=== PATIENT | female | born 2000 | race Caucasian/White ===

== ENCOUNTER 2021-04-17 18:16 | Emergency (ER) | payer SELFPAY ==
[2021-04-17 18:16] VITALS: BP 145/97; PULSE 84; RESP 15; TEMP 36.6; O2SAT 99; BMI 24.4
== END 2021-04-17 20:06 ==
LOC: ED 20:31
DX: R42 Dizziness and giddiness (principal)

== ENCOUNTER 2021-04-19 13:08 | Emergency (ER) | payer MEDICAID, SELFPAY ==
[2021-04-19 13:10] VITALS: BP 118/87; PULSE 87; RESP 16; TEMP 36; O2SAT 97; BMI 19.0
--- NOTE | 2021-04-19 13:31 | RAD_ITS ---
STUDY: X-RAY CHEST REASON FOR EXAM: Female, 20 years old. Sob TECHNIQUE: Single AP portable view of the chest. COMPARISON: None. FINDINGS: The lungs are clear and expanded. There is no demonstrated pleural abnormality. Normal size heart. Normal mediastinum and mata. Normal visualized pulmonary arteries. Normal visualized aortic arch and descending thoracic aorta. Normal visualized thoracic spine. Normal visualized ribs, clavicles, and shoulders. There is no demonstrated abnormality of the visualized soft tissue structures of the upper abdomen. RAD/Chest 1 View IMPRESSION: Normal x-ray examination of the chest. Electronically Signed: Alex Najera MD at 13:51 EDT , Service support ,
[2021-04-19 15:48] LABS: Mucous, Urine 0 SEEN /hpf (<or=2+); Red Blood Cells-Urine 0 SEEN /hpf (0-5)
[2021-04-19 15:51] VITALS: BP 116/60; BP 127/78; BP 130/82; PULSE 100; PULSE 63; PULSE 86
[2021-04-19 15:56] LABS: Color, Urine Yellow (Yellow); Glucose, Dipstick Normal (Normal); Leukocyte Esterase-Dipstick 25 /ul (Negative); Nitrite-Dipstick Negative (Negative); Occult Blood-Urine 10 /ul (Negative); Protein-Dipstick 15 mg/dl (Negative); Urine Bilirubin Dipstick Negative (Negative); Urine Clarity Sl. Cloudy (Clear); Urine Urobilinogen Normal (Normal)
[2021-04-19 16:03] LABS: Ketone-Dipstick 150 mg/dl (Negative)
[2021-04-19 16:09] LABS: Bacteria 1+ /hpf (None Seen); Squamous Epithelial Cells - UA 10-25 SEEN /hpf (5-10); White Blood Cells 5-10 SEEN /hpf (0-5)
[2021-04-19 16:20] LABS: Absolute Lymphocyte Count 0.97 X10^3/uL (0.83-4.51); Absolute Neutrophil Count 5.7 X10^3/uL (2.0-7.7); Basophil# 0.04 X10^3/uL; Basophil% 0.5 % (0-1); Eosinophil# 0.02 X10^3/uL; Eosinophils% 0.3 % (0-5); Hematocrit 42.1 % (37-47); Hemoglobin 14.8 g/dL (12.0-15.0); Lymphocyte # 0.97 X10^3/ul (0.83-4.51); Mean Corp Hgb Conc 35.2 g/dL (32-36); Mean Corpuscular Hgb 31.4 pg (27.0-32.0); Mean Corpuscular Volume 89.4 fL (81-99); Mean Platelet Vol. 9.4 fl (6.2-12.0); Monocyte# 0.65 X10^3/uL; Monocyte% 8.7 % (0-10); NRBC Flagged by Analyzer 0 % (0-5); Neutrophil # 5.74 X10^3/uL (2.7-7.7); Neutrophil % 77.2 % (47-70); Platelet Count 250 K/mm3 (150-450); RBC Distribution Width CV 11.8 % (11.6-14.6); RBC Distribution Width SD 38.4 fl (35.1-43.9); Red Blood Count 4.71 M/mm3 (4.2-5.4); White Blood Count 7.4 K/mm3 (4.4-11.0)
[2021-04-19 16:30] LABS: Internal QC Validated? YES +Cl - CLEAR BKGD; Pregnancy, Serum, hCG Quali. NEGATIVE Negative
--- NOTE | 2021-04-19 16:32 | ED.VIS.DYS ---
HPI History of Present Illness Chief Complaint: Shortness of Breath Informant: patient Onset/Context/Timing Onset: Days (3-4) Context: gradual Timing: Continuous Worsened by: - (Thick air and heat) Relieved by: Nothing Associated Symptoms subjective and chills; Negative for cough, rhinorrhea, ear pain, fever, sore throat, clear sputum, white sputum, yellow sputum or green sputum Chest Pain: Positive for None Narrative Narrative: Patient presents with shortness of breath that has been getting worse over the last 3 to 4 days. Patient states it is gradually getting worse. Patient states is worse when she goes out into the thick air and heat. Patient states nothing seems to make it better. Patient denies any cough. Patient is to some subjective chills. Patient denies any sore throat or rhinorrhea. Patient denies any chest pain. Patient states she does feel dizzy whenever she exerts herself. Patient states she also feels dizzy and lightheaded when she bends forward and when she stands up. PE Risk Factors: Negative for Cancer, OCP + Smoking + > 35, Prior DVT or PE, Recent immobilization, Recent surgery and Recent travel [facility] Medical History Asthma Home Medications NK 04/19/21 [History Last Taken Unknown] Allergy/AdvReac Type Severity Reaction Status Date / Time sulfamethoxazole Allergy Hives Verified 04/19/21 13:10 [From Bactrim] trimethoprim [From Bactrim] Allergy Hives Verified 04/19/21 13:10 no surgical history Social History Smoking Status: Never smoker ROS [facility] ED Constitutional Constitutional ED: Denies chills or fever(s) Eyes Eyes: Denies blurry vision or change in vision ENT ENT ED: Denies rhinorrhea or sore throat Cardiovascular Cardiovascular: Denies chest pain or palpitations Respiratory/Chest Respiratory/Chest: Reports dyspnea; Denies cough Gastrointestinal Gastrointestinal: Reports nausea and vomiting Genitourinary Genitourinary ED: Denies dysuria or hematuria Musculoskeletal Musculoskeletal: Reports back pain and neck pain Integumentary Denies abscess or rash Neurologic Neurologic: Reports headache(s) and weakness Allergic/Immunologic Allergic/Immunologic ED: Denies mouth swelling or urticaria EXAM Physical Exam Const Vital Signs: 04/19/21 13:10 04/19/21 15:51 04/19/21 16:15 Temperature 96.8 F L Temperature Source Temporal Pulse Rate 87 Pulse Rate [Lying] 63 Pulse Rate [Sitting] 86 Pulse Rate [Standing] 100 Respiratory Rate 16 Respiratory Effort Normal Non-Labored Respiratory Depth Normal Respiratory Pattern Normal Blood Pressure 118/87 H Blood Pressure [Lying] 116/60 Blood Pressure [Sitting] 127/78 H Blood Pressure [Standing] 130/82 H Blood Pressure Mean 97 Blood Pressure Mean [Lying] 78 Blood Pressure Mean [Sitting] 94 Blood Pressure Mean [Standing] 98 Pulse Ox 97 Oxygen Delivery Method Room Air Room Air Positive well nourished and well developed General Appearance ED: well developed HEENT Reports moist mucous membranes Neck supple and no JVD Resp normal respiratory effort and clear to auscultation bilaterally Cardio regular rate and regular rhythm GI non-tender and non-distended Auscultation: normoactive bowel sounds Palpation: soft Extremity normal to inspection General Extremety ED: Negative for edema or tenderness General Extremity: Negative for edema Neuro oriented x3, CN's II-XII intact bilaterally and no sensory deficits noted Sensorium / Orientation: alert Motor Exam: strength 5/5 throughout Psych mental status grossly normal MDM MDM MDM Narrative Medical decision making narrative: Orthostatic vital signs were obtained were within normal limits. CBC was within normal limits. Comprehensive metabolic profile was obtained and was within normal limits. Serum hCG was negative. Urinalysis does not show any evidence of urinary tract infection. Portable 1 view chest x-ray was obtained. On my interpretation, lung cuellar are clear. There is normal cardiac silhouette. Bony thorax is normal. There is no acute process noted. Radiologist also interpreted the x-ray and agrees. COVID-19 rapid antigen was obtained and was negative. Patient was advised of her findings. Patient was instructed to follow-up with her primary care physician in 5 to 7 days. Patient understood and was agreeable with the plan. All questions were answered. Lab Data Attestation: I reviewed the patient's lab results. Labs: Laboratory Results - last 24 hr 04/19/21 04/19/21 04/19/21 15:30 16:00 16:00 WBC 7.4 RBC 4.71 Hgb 14.8 Hct 42.1 MCV 89.4 MCH 31.4 MCHC 35.2 RDW Std Deviation 38.4 RDW Coeff of Sophie 11.8 Plt Count 250 MPV 9.4 Immature Gran % (Auto) 0.300 Neut % (Auto) 77.2 H Lymph % (Auto) 13.0 L [place] % (Auto) 8.7 Eos % (Auto) 0.3 Baso % (Auto) 0.5 Absolute Neuts (auto) 5.7 Absolute Lymphs (auto) 0.97 Nucleated RBC % 0 Serum , Qual NEGATIVE Urine Color Yellow Urine Clarity Sl. Cloudy Urine pH 6.0 Ur Specific [place] 1.020 Urine Protein 15 H Urine Glucose (UA) Normal Urine Ketones 150 A* Urine Occult Blood 10 H Urine Nitrite Negative Urine Bilirubin Negative Urine Urobilinogen Normal Ur Leukocyte Esterase 25 H Urine RBC 0 SEEN Urine WBC 5-10 SEEN Ur Squamous Epith Cells 10-25 SEEN Urine Bacteria 1+ Urine Mucus 0 SEEN Radiography Chest X-Ray - ED: 1 View, Read by ED Physician, Read by Radiologist and Normal Diagnostic Testing: Radiology Impression Chest X-Ray 04/19/21 13:31 IMPRESSION: Normal x-ray examination of the chest. Electronically Signed: Alex Najera MD at 13:51 EDT , Service support , Discharge Plan Triage Chief Complaint: Shortness of Breath ED Provider: Rai Cai Dx/Rx/DC Orders Clinical Impression: Viral illness Instructions: ED Viral Syndrome (Adult) Prescriptions: No Action NK RF: 0 Primary Care Provider: Care Physician,No Primary Referrals: Deena Jeffries [NON-STAFF] - 5-7 Days Care Physician,No Primary [Primary Care Provider] - Disposition Disposition: Home, Self Care
[2021-04-19 16:36] LABS: AST(SGOT) 20 U/L (15-37); Alanine Aminotransfer ALT/SGPT 21 U/L (13-56); Albumin, Serum 4.4 g/dL (3.2-5.0); Alkaline Phosphatase 80 U/L (45-117); Anion Gap 8 (5-15); BUN 9 mg/dL (7-18); Calcium,Total 9.4 mg/dL (8.5-10.1); Chloride 104 mmol/L (98-107); Creatinine, Serum 0.82 mg/dL (0.55-1.02); EST Glomerular Filtration Rate 95 mL/min (>60); Est Glom Filt Rate - Afr Amer 115 mL/min (>60); Estimated Creatinine Clearance 87.71 ml/min; Globulin 4.5 g/dL (2.2-4.2); Glucose 81 mg/dL (74-106); Protein, Total 8.9 g/dL (6.4-8.2); Sodium Level 137 mmol/L (136-145)
[2021-04-19 16:45] VITALS: BP 113/67; PULSE 52; RESP 16; O2SAT 98
== END 2021-04-19 16:47 | disposition home or self-care (01) ==
PROVIDERS: Emergency Provider Emergency Medicine
DX: B34.9 Viral infection, unspecified (principal); J45.909 Unspecified asthma, uncomplicated
CPT/HCPCS: 71045; 80053; 81001; 84703; 85025; 87426; 99284; A4216

== ENCOUNTER → 2021-05-17 15:24 | Outpatient (CLI) | payer MEDICAID, SELFPAY ==
[2021-05-17 16:43] LABS: Absolute Lymphocyte Count 1.64 X10^3/uL (0.83-4.51); Absolute Neutrophil Count 2.7 X10^3/uL (2.0-7.7); Basophil# 0.04 X10^3/uL; Basophil% 0.8 % (0-1); Eosinophil# 0.08 X10^3/uL; Eosinophils% 1.6 % (0-5); Hematocrit 40.4 % (37-47); Hemoglobin 13.9 g/dL (12.0-15.0); Lymphocyte # 1.64 X10^3/ul (0.83-4.51); Lymphocyte % 33.8 % (19-41); Mean Corp Hgb Conc 34.4 g/dL (32-36); Mean Corpuscular Volume 90.2 fL (81-99); Mean Platelet Vol. 9.4 fl (6.2-12.0); Monocyte# 0.43 X10^3/uL; Monocyte% 8.9 % (0-10); NRBC Flagged by Analyzer 0 % (0-5); Neutrophil # 2.65 X10^3/uL (2.7-7.7); Neutrophil % 54.7 % (47-70); Platelet Count 322 K/mm3 (150-450); RBC Distribution Width CV 12.7 % (11.6-14.6); RBC Distribution Width SD 41.8 fl (35.1-43.9); Red Blood Count 4.48 M/mm3 (4.2-5.4); White Blood Count 4.9 K/mm3 (4.4-11.0)
[2021-05-17 17:25] LABS: ALB/GLOB Ratio 1.1 RATIO (0.9-2.4); AST(SGOT) 12 U/L (15-37); Alanine Aminotransfer ALT/SGPT 17 U/L (13-56); Albumin, Serum 4.1 g/dL (3.2-5.0); Alkaline Phosphatase 67 U/L (45-117); Anion Gap 9 (5-15); BUN 9 mg/dL (7-18); BUN/Creat Ratio 12.9 RATIO (10-20); Calcium,Total 9.2 mg/dL (8.5-10.1); Chloride 105 mmol/L (98-107); EST Glomerular Filtration Rate 114 mL/min (>60); Est Glom Filt Rate - Afr Amer 138 mL/min (>60); Free T3 3.2 pg/mL (2.18-3.98); Globulin 3.8 g/dL (2.2-4.2); Glucose 93 mg/dL (74-106); Potassium 3.7 mmol/L (3.5-5.1); Protein, Total 7.9 g/dL (6.4-8.2); Sodium Level 139 mmol/L (136-145); T4 Free Direct 1.04 ng/dL (0.76-1.46); Thyroid Stim Hormone (TSH) 0.53 uIU/mL (0.358-3.74)
[2021-05-19 13:31] LABS: Thyroid Peroxidase AB < 8 IU/mL (0-26)
== END ==
PROVIDERS: Visit Provider Family Medicine
DX: R42 Dizziness and giddiness (principal)
CPT/HCPCS: 36415; 80053; 84439; 84443; 84481; 85025; 86376

== ENCOUNTER → 2021-05-29 16:01 | Outpatient (CLI) | payer MEDICAID, SELFPAY ==
[2021-05-29 17:42] LABS: Vitamin B12 673 pg/mL (211-911)
[2021-05-29 17:51] LABS: Iron 63 ug/dL (50-170); Iron Binding Capacity,Total 387 ug/dL (250-450)
[2021-05-31 10:46] LABS: H. Pylori Antibody (IgG) 0.16 (0.00-0.79)
[2021-06-01 16:52] LABS: Vitamin D 1,25-Dihydroxy 38.1 pg/mL (19.9-79.3)
== END ==
PROVIDERS: Referring Provider Nurse Practitioner Adult Health; Visit Provider Nurse Practitioner Adult Health
DX: R11.0 Nausea (principal); R42 Dizziness and giddiness
CPT/HCPCS: 36415; 82607; 82652; 82746; 83540; 83550; 86677

== ENCOUNTER → 2021-06-05 08:58 | Outpatient (CLI) | payer MEDICAID, SELFPAY ==
--- NOTE | 2021-06-05 09:00 | EKG12_ITS ---
Test Reason : DIZZINESS Blood Pressure : / mmHG Vent. Rate : 061 BPM Atrial Rate : 061 BPM P-R Int : 168 ms QRS Dur : 092 ms QT Int : 420 ms P-R-T Axes : 013 047 038 degrees QTc Int : 422 ms Sinus rhythm with marked sinus arrhythmia Otherwise normal ECG Confirmed by LILY BUCHANAN, TABITHA ([id number]), publication editor CHRISTOPHER MÁRQUEZ ([id number]) on 06/06/2021 9:50:58 AM Referred By: Alexandra Dacosta Confirmed By:TABITHA BAUTISTA MD
== END ==
PROVIDERS: Referring Provider Nurse Practitioner Adult Health; Visit Provider Nurse Practitioner Adult Health
DX: R42 Dizziness and giddiness (principal)
CPT/HCPCS: 93005

== ENCOUNTER → 2021-06-19 13:51 | Outpatient (CLI) | payer MEDICAID, SELFPAY ==
--- NOTE | 2021-06-19 13:53 | ECHOD_ITS ---
Reason For Study: DIZZINESS Procedure This was a 2D Doppler, Color Flow transthoracic echocardiogram. Exam performed in department. Left Ventricle Normal LV size. Left ventricular systolic function is normal. The estimated ejection fraction is 56 %. Normal diastology for age. No regional wall motion abnormalities noted. Right Ventricle Normal RV size. Normal systolic function. Atria Normal left atrium. Normal right atrium. Mitral Valve Normal mitral valve. Tricuspid Valve Normal tricuspid valve. Mild tricuspid valve insufficiency. Pulmonary artery systolic pressure is 33 mmHg. Aortic Valve Normal aortic valve. Trisinus/trileaflet aortic valve. Pulmonic Valve Normal pulmonic valve. Great Vessels Normal aortic root. The pulmonary artery is normal size. Normal inferior vena cava. Pericardium/Pleural No pericardial effusion. MMode/2D Measurements & Calculations LVIDd: 3.9 cm IVSd: 0.77 cm Ao root diam: 2.2 cm LVIDs: 2.4 cm LVPWd: 0.76 cm RVDd: 3.1 cm FS: 37.7 % LAV(MOD-bp): 32.1 ml LA A4 area: 13.4 cm2 LA dimension(2D): 3.1 cm LAV(MOD-bp) Indexed: 22.1 ml/m2 LAV(MOD-sp2): 28.3 ml LAV(MOD-sp4): 30.7 ml RA A4 area: 7.5 cm2 Doppler Measurements & Calculations MV E max buddy: 91.2 cm/sec Lat Peak E' Buddy: 17.2 cm/sec Med Peak E' Buddy: 12.8 cm/sec MV A max buddy: 78.3 cm/sec E/E' lat: 5.3 E/E' med: 7.1 MV E/A: 1.2 Ao V2 max: 136.8 cm/sec LV V1 max: 99.5 cm/sec PA V2 max: 123.9 cm/sec Ao max P.5 mmHg LV V1 max P.0 mmHg PI end-d buddy: 60.1 cm/sec TR max buddy: 271.6 cm/sec TR max P.5 mmHg ECHO/Echo Complete Interpretation Summary Normal LV size. Left ventricular systolic function is normal. The estimated ejection fraction is 56 %. Structurally normal valves. Ordering Physician: Alexandra Dacosta Referring Physician: [facility] Performed By: Charito Haile RDCS, RVT
== END ==
PROVIDERS: Referring Provider Nurse Practitioner Adult Health; Visit Provider Nurse Practitioner Adult Health
DX: R42 Dizziness and giddiness (principal)
CPT/HCPCS: 93306

== ENCOUNTER 2021-07-01 21:52 | Emergency (ER) | payer MEDICAID, SELFPAY ==
[2021-07-01 21:53] VITALS: BP 144/91; PULSE 122; RESP 18; TEMP 35.9; O2SAT 100; BMI 21.1
--- NOTE | 2021-07-01 22:10 | CT_ITS ---
STUDY: CT ABDOMEN AND PELVIS WITH CONTRAST REASON FOR EXAM: Female, 21 years old. LUQ ABD PAIN STARTED 5 DAYS AGO. DIARRHEA YESTERDAY. VOMITING TODAY. RADIATION DOSAGE (If Supplied By Facility): CTDIvol = ( 7.53 ) mGy, DLP = ( 235.11 ) mGycm TECHNIQUE: Transaxial images were obtained from the dome of the diaphragm to the symphysis pubis without oral contrast. IV 75mL Isovue-370 was administered. Sagittal and coronal images were reconstructed. Individualized dose optimization techniques were used for this CT. COMPARISON: None. FINDINGS: The visualized lung bases are unremarkable. The visualized portions of the heart are within normal limits. Normal liver. Normal gallbladder and extrahepatic biliary system. Normal spleen. Normal pancreas. Normal bilateral adrenal glands. Horseshoe kidney noted. No hydronephrosis or radiopaque stones are seen. Normal visualized stomach. Normal small intestine. Normal colon. The appendix is visualized and appears normal. No free air or free fluid or bowel dilatation is present. Normal abdominal aorta. Normal inferior vena cava. Normal retroperitoneum. Normal urinary bladder. Unremarkable uterus and adnexa. Normal abdominal wall. Normal osseous structures. CT/Abdomen/Pelvis W IV Cont ONLY IMPRESSION: 1. No demonstrated acute or significant process of the abdomen and pelvis. Electronically Signed: En Boyer MD at 23:58 EST , Service support ,
[2021-07-01 22:25] LABS: Absolute Lymphocyte Count 2.53 X10^3/uL (0.83-4.51); Absolute Neutrophil Count 6.3 X10^3/uL (2.0-7.7); Basophil# 0.07 X10^3/uL; Basophil% 0.7 % (0-1); Eosinophil# 0.04 X10^3/uL; Eosinophils% 0.4 % (0-5); Hematocrit 39.8 % (37-47); Hemoglobin 14.3 g/dL (12.0-15.0); Lymphocyte # 2.53 X10^3/ul (0.83-4.51); Lymphocyte % 26.6 % (19-41); Mean Corp Hgb Conc 35.9 g/dL (32-36); Mean Corpuscular Hgb 31.8 pg (27.0-32.0); Mean Corpuscular Volume 88.4 fL (81-99); Monocyte# 0.56 X10^3/uL; Monocyte% 5.9 % (0-10); NRBC Flagged by Analyzer 0 % (0-5); Neutrophil # 6.28 X10^3/uL (2.7-7.7); Neutrophil % 66.1 % (47-70); Platelet Count 351 K/mm3 (150-450); White Blood Count 9.5 K/mm3 (4.4-11.0)
[2021-07-01 22:34] LABS: Bacteria 0 SEEN /hpf (None Seen)
[2021-07-01 22:35] LABS: Color, Urine Yellow (Yellow); Glucose, Dipstick Normal (Normal); Ketone-Dipstick 15 mg/dl (Negative); Leukocyte Esterase-Dipstick Negative /ul (Negative); Nitrite-Dipstick Negative (Negative); Occult Blood-Urine 10 /ul (Negative); Protein-Dipstick 15 mg/dl (Negative); Specific Gravity, Urine 1.025 (1.002-1.030); Urine Bilirubin Dipstick Negative (Negative); Urine Clarity Sl. Cloudy (Clear); Urine Urobilinogen Normal (Normal)
[2021-07-01 22:44] LABS: AST(SGOT) 18 U/L (15-37); Alanine Aminotransfer ALT/SGPT 20 U/L (13-56); Albumin, Serum 4.2 g/dL (3.2-5.0); Alkaline Phosphatase 72 U/L (45-117); Anion Gap 9 (5-15); BUN 9 mg/dL (7-18); BUN/Creat Ratio 10.5 RATIO (10-20); Bilirubin, Direct 0.08 mg/dL (0.00-0.30); Calcium,Total 9.7 mg/dL (8.5-10.1); Chloride 105 mmol/L (98-107); Creatinine, Serum 0.86 mg/dL (0.55-1.02); EST Glomerular Filtration Rate 90 mL/min (>60); Est Glom Filt Rate - Afr Amer 108 mL/min (>60); Estimated Creatinine Clearance 74.95 ml/min; Globulin 4.5 g/dL (2.2-4.2); Glucose 101 mg/dL (74-106); Lipase 75 U/L (73-393); Potassium 3.8 mmol/L (3.5-5.1); Protein, Total 8.7 g/dL (6.4-8.2); Sodium Level 137 mmol/L (136-145)
[2021-07-01 22:44] LABS: Internal QC Validated? YES +Cl - CLEAR BKGD; Pregnancy, Urine Negative Negative
--- NOTE | 2021-07-01 22:46 | EX.ED.DYSGE1 ---
HPI History of Present Illness Chief Complaint: Abd Pain Narrative Narrative: Patient is a 21-year-old female no significant past medical history. She states for the past 5 days she has had midepigastric abdominal pain. She reports that the pain has slowly been worsening to the point where it caused a bout of vomiting today. She denies any fevers or chills. She states there is been no recent trauma or heavy lifting. She denies any history of gallbladder disease or recent alcohol use. She states the pain seems to worsen about 1 hour after eating. She reports as the pain has been worsening and she does not know what is causing it she presents for evaluation. Patient does state that she had a Covid test just 4 days ago which was negative. [facility] Medical History Asthma Home Medications famotidine [Pepcid] 20 mg PO BID #60 tab 07/02/21 [Rx Last Taken Unknown] Allergy/AdvReac Type Severity Reaction Status Date / Time sulfamethoxazole Allergy Hives Verified 07/01/21 21:52 [From Bactrim] trimethoprim [From Bactrim] Allergy Hives Verified 07/01/21 21:52 Social History Smoking Status: Never smoker ROS ROS ED Constitutional Constitutional ED: Denies chills or fever(s) ENT ENT ED: Denies sore throat Cardiovascular Cardiovascular: Denies chest pain Respiratory/Chest Respiratory/Chest: Denies cough or dyspnea Gastrointestinal Gastrointestinal: Reports abdominal pain, diarrhea, nausea and vomiting; Denies constipation Genitourinary Genitourinary ED: Denies dysuria or hematuria Musculoskeletal Musculoskeletal: Denies myalgias Integumentary Denies rash Neurologic Neurologic: Denies headache(s) EXAM Physical Exam Const Vital Signs: 07/01/21 21:53 07/01/21 23:27 Temperature 96.7 F L Temperature Source Temporal Pulse Rate 122 H 88 Respiratory Rate 18 16 Blood Pressure 144/91 H 107/76 Blood Pressure Mean 108 86 Pulse Ox 100 99 Oxygen Delivery Method Room Air Room Air Positive well nourished and well developed General Appearance ED: well developed HEENT Reports moist mucous membranes Eyes PERRL and EOMs intact bilaterally Neck supple Resp normal respiratory effort and clear to auscultation bilaterally Cardio regular rate and regular rhythm GI non-distended GI Narrative: There is pain on palpation in the midepigastric region with slight voluntary guarding at the site. No rigidity or peritoneal signs no pulsatile mass Auscultation: normoactive bowel sounds Palpation: soft Extremity normal to inspection Neuro oriented x3 and CN's II-XII intact bilaterally Sensorium / Orientation: alert Motor Exam: strength 5/5 throughout Psych mental status grossly normal Skin no rashes or lesions noted MDM MDM MDM Narrative Medical decision making narrative: Patient presented to the ER afebrile. On her abdominal exam she did display mild guarding in the epigastric region and as she has had 5 days of worsening pain I did elect to perform a CT scan along with basic blood work. Blood work revealed no clinically significant findings and CT scan also revealed no acute abdominal pathology. Therefore based on the fact that her pain worsens after eating and his location I do feel that this is gastritis or the development of an early ulcer. Therefore patient will be placed on Pepcid but should follow-up with her family doctor to discuss GI referral and need for EGD. However at this time as the ER work-up was overall negative and her stomach remained soft and nonsurgical she is safe for discharge Lab Data Attestation: I reviewed the patient's lab results. Labs: Laboratory Results - last 24 hr 07/01/21 07/01/21 07/01/21 22:19 22:19 22:27 WBC 9.5 RBC 4.50 Hgb 14.3 Hct 39.8 MCV 88.4 MCH 31.8 MCHC 35.9 RDW Std Deviation 39.0 RDW Coeff of Sophie 12.0 Plt Count 351 MPV 9.0 Immature Gran % (Auto) 0.300 Neut % (Auto) 66.1 Lymph % (Auto) 26.6 [place] % (Auto) 5.9 Eos % (Auto) 0.4 Baso % (Auto) 0.7 Absolute Neuts (auto) 6.3 Absolute Lymphs (auto) 2.53 Nucleated RBC % 0 Sodium 137 Potassium 3.8 Chloride 105 Carbon Dioxide 23.0 Anion Gap 9 BUN 9 Creatinine 0.86 Estim Creat Clear Calc 74.95 Est GFR (MDRD) Af Amer 108 Est GFR (MDRD) Non-Af 90 BUN/Creatinine Ratio 10.5 Glucose 101 Calcium 9.7 Total Bilirubin 0.30 Direct Bilirubin 0.08 AST 18 ALT 20 Alkaline Phosphatase 72 Total Protein 8.7 H Albumin 4.2 Globulin 4.5 H Lipase 75 Urine Color Yellow Urine Clarity Sl. Cloudy Urine pH 5.0 Ur Specific [place] 1.025 Urine Protein 15 H Urine Glucose (UA) Normal Urine Ketones 15 H Urine Occult Blood 10 H Urine Nitrite Negative Urine Bilirubin Negative Urine Urobilinogen Normal Ur Leukocyte Esterase Negative Urine RBC 0-5 SEEN Urine WBC 0-5 SEEN Ur Squamous Epith Cells 0-5 SEEN Urine Bacteria 0 SEEN Urine Mucus RARE Urine Test Negative Radiography Diagnostic Testing: Clinical Impression(s) from Imaging Studies Abdomen/Pelvis CT 07/01/21 22:10 IMPRESSION: 1. No demonstrated acute or significant process of the abdomen and pelvis. Electronically Signed: En Boyer MD at 23:58 EST , Service support , Discharge Plan Triage Chief Complaint: Abd Pain ED Provider: Compa Mulligan Dx/Rx/DC Orders Clinical Impression: Gastritis Instructions: ED PEPTIC ULCER vs GASTRITIS Prescriptions: New famotidine [Pepcid] 20 mg tablet 20 mg PO BID Qty: 60 RF: 0 Primary Care Provider: Deena Gonzales Referrals: [facility] Deena Lamar [Primary Care Provider] - Activity Restrictions/Additional Instructions: Please talk to your family doctor about a GI referral and need for EGD secondary to your persistent abdominal pain and concern this is gastritis versus peptic ulcer Disposition Disposition: Home, Self Care
[2021-07-01 22:49] LABS: Squamous Epithelial Cells - UA 0-5 SEEN /hpf (5-10)
[2021-07-01 22:50] LABS: Mucous, Urine RARE /hpf (<or=2+)
[2021-07-01 22:51] LABS: Red Blood Cells-Urine 0-5 SEEN /hpf (0-5); White Blood Cells 0-5 SEEN /hpf (0-5)
[2021-07-01] MEDS: Famotidine 200 MG/20 ML MDV 20 MG in 0.9% Normal Saline (Pres. free 8 ML 300 MG IV (22:57)
[2021-07-01] MEDS: Ondansetron 4 MG/2 ML Vial IV (22:58)
[2021-07-01] MEDS: 0.9% Normal Saline 1,000 ML 999 ML IV (22:58)
[2021-07-01] MEDS: Morphine 4 MG/ML Syringe IV (22:58)
[2021-07-01] MEDS: Mag Hydrox/Al Hydrox/Simeth 30 ML UDC PO (23:23)
[2021-07-01 23:27] VITALS: BP 107/76; PULSE 88; RESP 16; O2SAT 99
[2021-07-02 00:21] VITALS: BP 142/90; PULSE 78; RESP 18; O2SAT 96
== END 2021-07-02 00:23 | disposition home or self-care (01) ==
PROVIDERS: Emergency Provider Emergency Medicine
DX: K29.70 Gastritis, unspecified, without bleeding (principal); J45.909 Unspecified asthma, uncomplicated
CPT/HCPCS: 74177; 80048; 80076; 81001; 81025; 83690; 85025; 96365; 96375; 99285; J7030; Q9967; A4216; J2405; J3490

== ENCOUNTER → 2021-07-10 08:27 | Outpatient (CLI) | payer MEDICAID, SELFPAY ==
--- NOTE | 2021-07-10 08:30 | US_ITS ---
STUDY: ABDOMINAL ULTRASOUND REASON FOR EXAM: Female, 21 years old. NAUSEA WITH VOMITING . History of horseshoe kidney. TECHNIQUE: Transabdominal ultrasound was performed with real-time and static morelos scale imaging. TECHNICAL QUALITY: Adequate. COMPARISON: None. FINDINGS: Liver: The liver measures 14.8 cm. There is increased echogenicity consistent with fatty infiltration. The bile ducts are within normal limits. There is hepatic color flow. The direction of portal flow is hepatopetal. There is no demonstrated mass lesion. Gallbladder: There is a contracted gallbladder. The gallbladder wall measures 3.1 mm. There is a negative sonographic Helm''s sign. There is no pericholecystic fluid. There are no gallstones. Common Bile Duct (C.B.D.): The common bile duct measures 3.5 mm. Pancreas: Normal size of the head, body and tail of the pancreas. There is normal echogenicity of the pancreas. There is no demonstrated pancreatic mass or cyst. Spleen: Normal size of the spleen. The spleen measures 10.2 cm x 3.7 cm x 3.7 cm. Right Kidney: Normal size of the right kidney. The right kidney measures 11.27 x 4.95 x 5.3 cm. Normal renal cortex. The right cortex measures 1.7 cm. There is no demonstrated renal mass or cyst. There is no right hydronephrosis. Left Kidney: Normal size of the left kidney. The left kidney measures 11.2 cm x 4.9 cm x 5.3 cm. Normal renal cortex. The left cortex measures 1.7 cm. There is no demonstrated renal mass or cyst. There is no left hydronephrosis. Aorta: Unremarkable I.V.C.: The IVC is patent. There is no ascites. US/Abdomen Complete IMPRESSION: Fatty infiltration of the liver. Partially contracted gallbladder. Minimally thickened gallbladder wall. Electronically Signed: Alex Najera MD at 14:46 EST , Service support ,
== END ==
PROVIDERS: Referring Provider Nurse Practitioner Adult Health; Visit Provider Nurse Practitioner Adult Health
DX: R11.2 Nausea with vomiting, unspecified (principal)
CPT/HCPCS: 76700

== ENCOUNTER 2021-07-12 06:20 | Day surgery (SDC) | payer MEDICAID, SELFPAY ==
[2021-07-12 06:57] VITALS: BP 127/83; PULSE 87; RESP 16; TEMP 36.3; O2SAT 100; BMI 21.4
[2021-07-12 07:03] LABS: Internal QC Validated? YES +Cl - CLEAR BKGD; Pregnancy, Urine Negative Negative
[2021-07-12] MEDS: Lactated Ringers 1,000 ML 15 ML IV (07:05)
--- NOTE | 2021-07-12 07:17 | HP.PCM_ITS ---
History and Physical Date of Admission: 07/12/21 Date of Service: 07/06/21 MR#:[id number]:[id number]: AVA BARKER #:[id number]:2000 Provider:Uvaldo Huitron/Sex: 21/F [facility] Vital Signs 07/06/21 13:25 Height 5 ft Weight: 109 lb 4 oz BMI 21.3 BP 132/81 H Blood Pressure Location Rt brachial Position Sitting Respiration 18 Pulse 93 Pulse Source Monitor Temp 97.8 F Temp Source Temporal Pulse Oximetry (%) 99 Oxygen Delivery Method room air Intake Visit Reasons: NAUSEA, ABDOMINAL PAIN, WEIGHT LOSS Chief Complaint: Nausea/vomiting/abdominal pain/weight loss 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 Is patient in pain?: Yes Allergies sulfamethoxazole [From Bactrim] Allergy (Verified 07/06/21 13:27) Hives trimethoprim [From Bactrim] Allergy (Verified 07/06/21 13:27) Hives Medications famotidine [Pepcid] 20 mg PO BID #60 tab 07/02/21 [Rx Confirmed 07/06/21] cholecalciferol (vitamin D3) 10 mcg/drop (400 unit/drop) oral drops 10 mcg PO DAILY 07/06/21 [History Confirmed 07/06/21] hydroxyzine pamoate 25 mg capsule 25 mg PO TID PRN 07/06/21 [History Confirmed 07/06/21] omeprazole 40 mg capsule,delayed release 40 mg PO QDAY #30 cap 07/06/21 [Rx Confirmed 07/06/21] PFSH Medical History (Updated 07/07/21 @ 13:[address] Aurelia Vásquez MD) Abdominal pain Anxiety with depression Asthma Diarrhea Fatigue Gastritis Nausea and vomiting Weight loss Surgical History (Updated 07/06/21 @ 13:24 by Brooke Dunn) No history of previous surgery Family History (Updated 07/06/21 @ 13:25 by Brooke Dunn) Father Heart disease Thyroid disorder Social History (Updated 07/06/21 @ 13:25 by Brooke Dunn) Smoking Status: Never smoker alcohol intake: never substance use type: does not use HPI HPI HPI: AVA BARKER, is a 21 F who presents to the office today for epigastric pain, nausea and vomiting and diarrhea. Patient states she will usually have the emesis in the morning about 2-3 times a week. She will also have some nausea throughout the day and some left upper quadrant pain after eating. Patient also has diarrhea about two times a week but she will have normal bowel movements in between. Patient did lose about 40 pounds in 6 months but that was about over a year ago due to an eating disorder patient states she has maintained her weight during the last year which is when this abdominal pain nausea and vomiting started. Patient did just start on Pepcid 20 mg p.o. twice daily yesterday does think is helped some with the nausea and she has not vomited currently with the medication. ROS General General: Yes weight change and fatigue; No appetite, colon cancer, breast cancer or weakness HEENT HEENT: No difficulty swallowing, eye injury, eye surgery, swollen glands or hoarseness Endo Endocrine: No thyroid disease, diabetes mellitus, thyroid cancer, Hair loss, heat intolerance or cold intolerance Skin Skin: No rash or changing moles Breast Breast: No left breast lump, right breast lump, nipple discharge, breast pain, abnormal mammogram, abnormal US or breast enlargement Musc Musculoskeletal: No back problems, arthritis, rheumatoid arthritis, gout or joint pain Cardio Cardiovascular: No murmur, pacemaker, heart disease, atrial fibrillation, high blood pressure, heart attack, heart stent, palpitations, shortness of breat with exertion or chest pain Psych Psychiatric: Yes depression and anxiety; No hearing voices Resp Respiratory: No shortness of breath, No sleep apnea, No cough, No COPD, Yes asthma, No emphysema and No wheezing Gastro Gastrointestinal: Yes abdominal pain, Yes nausea or vomiting, Yes diarrhea, Yes constipation, No blood in stool, Yes acid reflux, No hemorrhoids, No ulcers, No gallbladder problem and No black,tarry stools Olaf Hematologic: No blood thinners, No blood disorders, No bleeding, No anemia and No blood clots Neuro Neurologic: No system reviewed and no additional complaints, except as documente d, No as per HPI, No abnormal gait, No abnormal hearing, No abnormal movements, No abnormal speech, No behavioral changes, No burning sensations, No confusion, No convulsions, No disequilibrium, No dizziness, No localized weakness, No frequent falls, No headache(s), No lack of coordination, No loss of vision, No memory loss, No numbness, No other visual disturbances, No radicular pain, No restless legs, No sensory deficit, No syncope, No tingling, No tremor(s), No weakness and No other Exam Const General: cooperative, healthy appearing, comfortable and no acute distress Neck Neck: normal visual inspection Resp Effort & Inspection: normal respiratory effort Cardio Rate: regular rate GI Inspection: non-distended Palpation: soft, no guarding and nontender Skin General: no rashes or lesions noted Neuro General: patient oriented x3 Psych Affect: normal affect COVID (Procedure Consent) Procedure Criteria Procedure Criteria: Yes Elective The surgeon/proceduralist and patient have discussed in detail the risk of exposure to and/or potential harm posed by the COVID-19 virus with having a surgery/procedure at this time versus the risk of delaying the surgery/procedure. It is not possible to know either the risk of delaying the surgery or procedure or chance of getting an infection with perfect accuracy, but a joint decision was made between the patient and the surgeon/proceduralist to proceed at this time with the scheduled surgery/procedure as indicated on the consent form. Assessment and Plan Assessment and Plan (1) LUQ abdominal pain: Status: Acute (2) Gastritis: Status: Acute Plan - Dr. Aurelia Vásquez MD: We will also start patient on omeprazole 40 mg p.o. daily see if this helps prior to getting the EGD. I have discussed the above with the patient. I have offered the patient EGD for evaluation. I have explained the risks/benefits of the procedure and described the procedure. I have discussed the risks with the patient, including but not limited to: infection, bleeding, perforation of the GI tract requiring emergency surgery, inability to complete the procedure, injury to any internal organs, complications of anesthesia, etc. - the patient understands and agrees to proceed. I have answered all the patient's questions to the patient's satisfaction and the patient has no further questions. Aurelia Vásquez M.D. Pager: [phone] [facility] [address] [place] [address], [address] [place] [address] Office: [phone] Plan Details Other Medications: New: omeprazole swallow whole; do not crush, chew, dissolve, cut, break 40 mg PO QDAY 30 caps 2RF Coding Level of Care Code Off vis,new,level 3 Diagnoses LUQ abdominal pain R10.12 Gastritis K29.70 07/07/21 1301<Electronically signed by Aurelia Vásquez MD>Date Aurelia Vásquez MD
--- NOTE | 2021-07-12 07:30 | IMM_PTH ---
PATIENT: AVA BARKER LOC: EN U#:[id number] AGE/SX: 21/F ROOM: RE07/12/[address]: Dr. Aurelia Vásquez MD : 2000 BED: DIS: 07/12/2021 SPEC #: [id number] RECD: 07/12/21 12:44 STATUS: JESSICA REMitul #: [id number] GILBERT: 07/12/21 07:[address]: Aurelia Vásquez DEPT: IMMUNOHISTOCHEMISTRY RECD BY: Kirsten Wilkins ENTERED: 07/12/21 12:45 SP TYPE: IMMUNO OTHR DR: Deena [facility] Tissues: A - Stomach, NOS Procedures: H Pylori (initial) PHYSICIAN & INSTITUTION [place] [address] SPECIMEN INFORMATION: Tissue Source: A ? Pre-pyloric gastric ulcer Clinical Info: LUQ pain, gastritis Specimen Number: [id number] CPT code: 70918 METHODOLOGY: Deparaffinized sections of prefer/formalin-fixed tissue or PAP/DQ stained slides are incubated with monoclonal/polyclonal antibodies/oligonucleotide probes. Localization is made via biotin free immunoperoxidase method. Appropriate controls are performed and reacted as expected. Results on target cell population are indicated in the following table: RESULTS: ANTIBODY / CLONE RESULT Block A H Pylori (polyclonal) negative These tests were developed and their performance characteristics determined by [facility]. They may not have been cleared or approved by the U.S. Food and Drug Administration. The FDA has determined that such clearance or approval is not necessary. INTERPRETATION: A. Pre-pyloric gastric ulcer, biopsy: Negative for Helicobacter pylori organisms. AM:den 07/13/2021
--- NOTE | 2021-07-12 07:30 | EGD_PTH ---
PATIENT: AVA BARKER LOC: EN U#:[id number] AGE/SX: 21/F ROOM: RE07/12/[address]: Dr. Aurelia Vásquez MD : 2000 BED: DIS: 07/12/2021 SPEC #: [id number] RECD: 07/12/21 10:18 STATUS: JESSICA DAVIS #: [id number] GILBERT: 07/12/21 07:[address]: Aurelia Vásquez DEPT: SURGICAL PATHOLOGY RECD BY: Kenna Hancock ENTERED: 07/12/21 11:22 SP TYPE: EGD BIOPSY OTHR DR: Deena [facility] Tissues: A - Gastric mucous membrane B - Gastric mucous membrane Procedures: Special Stain Group II Surgery Specimen Level IV Alcian Blue/PAS (control) HEADER OPER[place] [place] DIAGNOSIS: Left upper quadrant pain, gastritis TISSUE SUBMITTED: A ? Pre-pyloric gastric ulcer for H. pylori, B ? Biopsy GE junction MICROSCOPIC DIAGNOSIS A. Pre-pyloric gastric ulcer, biopsy: Chronic gastritis. See comment. B. Gastroesophageal junction, biopsy: Chronic inflammation. No evidence of goblet cell metaplasia. See comment. AM:den 07/13/2021 COMMENT A. The results of immunohistochemistry for Helicobacter pylori will be reported separately ([id number]). B. Alcian blue/PAS stain with matched control supports the above diagnosis. MICROSCOPIC DESCRIPTION Slides are reviewed. GROSS DESCRIPTION A - Received in fixative is one container labeled with the patient's name and designated pre-pyloric gastric ulcer. The specimen consists of one irregular fragment of light rudd soft tissue that measures 0.6 x 0.3 x 0.1 cm. The specimen is totally submitted in one cassette. B - Received in fixative is one container labeled with the patient's name and designated GE junction biopsy. The specimen consists of multiple irregular fragments of light rudd soft tissue that in aggregate measure 0.7 x 0.3 x 0.1 cm. The specimen is totally submitted in one cassette. / AM:den 07/12/21 TC:3 CPT: 06568 x2
[2021-07-12 07:40] VITALS: BP 105/53; BP 127/83; PULSE 65; RESP 16; TEMP 36.4; O2SAT 99
[2021-07-12 07:45] VITALS: BP 101/71; BP 127/83; PULSE 63; RESP 16; O2SAT 100
--- NOTE | 2021-07-12 07:48 | OP.EGD_ITS ---
Patient Name: Tasha Chandra Procedure Date: 07/12/2021 7:06 AM Date of : 2000 Age: 21 Procedure: Upper GI endoscopy Indications: Epigastric abdominal pain, Heartburn Providers: Aurelia Vásquez MD Medicines: Monitored Anesthesia Care Patient Profile: This is a 21 year old female. Complications: No immediate complications. Procedure: Pre-Anesthesia Assessment: - Prior to the procedure, a History and Physical was performed, and patient medications and allergies were reviewed. The patient's tolerance of previous anesthesia was also reviewed. The risks and benefits of the procedure and the sedation options and risks were discussed with the patient. All questions were answered, and informed consent was obtained. Prior Anticoagulants: The patient has taken no previous anticoagulant or antiplatelet agents. ASA Grade Assessment: Per anesthesia. After reviewing the risks and benefits, the patient was deemed in satisfactory condition to undergo the procedure. After obtaining informed consent, the endoscope was passed under direct vision. Throughout the procedure, the patient's blood pressure, pulse, and oxygen saturations were monitored continuously. The gastroscope was introduced through the mouth, and advanced to the second part of duodenum. The upper GI endoscopy was accomplished without difficulty. The patient tolerated the procedure well. Scope In: 7:29:59 AM Scope Out: 7:35:31 AM Total Procedure Duration Time 0 hours 5 minutes 32 seconds Findings: The Z-line was irregular and was found 38 cm from the incisors. Biopsies were taken with a cold forceps for histology. One non-bleeding cratered gastric ulcer with no stigmata of bleeding was found in the prepyloric region of the stomach. The lesion was 4 mm in largest dimension. Biopsies were taken with a cold forceps for Helicobacter pylori cultures. Biopsies were taken with a cold forceps for histology. The examined duodenum was normal. Moderately erythematous mucosa without bleeding was found in the prepyloric region of the stomach. Impression: - Z-line irregular, 38 cm from the incisors. Biopsied. - Non-bleeding gastric ulcer with no stigmata of bleeding. Biopsied. - Normal examined duodenum. - Erythematous mucosa in the prepyloric region of the stomach. Recommendation: - Await pathology results. - Discharge patient to home. - Resume previous diet. - Use sucralfate tablets 1 gram PO QID for 2 weeks. - Continue present medications. Procedure Code(s): --- Professional --- 22535, Esophagogastroduodenoscopy, flexible, transoral; with biopsy, single or multiple Diagnosis Code(s): --- Professional --- K22.8, Other specified diseases of esophagus K25.9, Gastric ulcer, unspecified as acute or chronic, without hemorrhage or perforation K31.89, Other diseases of stomach and duodenum R10.13, Epigastric pain R12, Heartburn CPT copyright 2017 [employer]. All rights reserved. The codes documented in this report are preliminary and upon clinical geneticist review may be revised to meet current compliance requirements. MD Aurelia Wynne MD 07/12/2021 7:48:32 AM This report has been signed electronically. Number of Addenda: 0 Note Initiated On: 07/12/2021 7:06 AM
--- NOTE | 2021-07-12 07:49 | OP.CCLET_ITS ---
07/12/2021 Deena Jeffries [facility] Re : Upper GI endoscopy procedure for Tasha Fair [facility] This procedure was performed on Monday, July 12, 2021. My impressions and recommendations are as follows: Impressions : - Z-line irregular, 38 cm from the incisors. Biopsied. - Non-bleeding gastric ulcer with no stigmata of bleeding. Biopsied. - Normal examined duodenum. - Erythematous mucosa in the prepyloric region of the stomach. Recommendations : - Await pathology results. - Discharge patient to home. - Resume previous diet. - Use sucralfate tablets 1 gram PO QID for 2 weeks. - Continue present medications. My findings are described in the full procedure note, which is enclosed. If I can be of further assistance, please feel free to contact me at Doctor phone number(s): , Work: . Sincerely, MD Aurelia Wynne MD 07/12/2021 7:48:32 AM This report has been signed electronically.
[2021-07-12 07:50] VITALS: BP 100/70; BP 127/83; PULSE 66; RESP 16; O2SAT 99
[2021-07-12 07:55] VITALS: BP 102/62; BP 127/83; PULSE 63; RESP 16; TEMP 36.4; O2SAT 99
[2021-07-12 08:09] VITALS: BP 127/83
== END 2021-07-12 08:32 | disposition home or self-care (01) ==
LOC: EN 06:22 → AC 06:24
PROVIDERS: Anesthesiology; Visit Provider Surgery
PROC: 0DJ08ZZ Inspection of Upper Intestinal Tract, Via Natural or Artificial Opening Endoscopic (ICD-10-PCS; CPT 43235; principal; 2021-07-12 07:25)
DX: K25.9 Gastric ulcer, unspecified as acute or chronic, without hemorrhage or perforation (principal); K31.89 Other diseases of stomach and duodenum; K22.89 Other specified disease of esophagus; K29.70 Gastritis, unspecified, without bleeding
CPT/HCPCS: 43239; 81025; 88305; 88313; 88342; J7120

== ENCOUNTER 2021-12-13 16:37 | Emergency (ER) | payer MEDICAID, SELFPAY ==
[2021-12-13 16:37] VITALS: BP 144/92; PULSE 83; RESP 18; TEMP 37.1; O2SAT 99; BMI 23.4
--- NOTE | 2021-12-13 16:45 | EDS_ITS ---
HPI History of Present Illness Chief Complaint: Abd Pain Informant: patient Narrative Narrative: 21-year-old female presenting with right flank pain. Symptoms began yesterday. She describes it simply as pain but cannot describe it further. Its worse with breathing and with movement. She notes emesis this morning x1. No diarrhea. She denies any urinary symptoms or fever. No trauma. No DVT PE risk factors. No pain anteriorly in the abdomen. She tells me she feels lightheaded but wonders as if it is from giving blood yesterday. She states that she wonders if she is dehydrated. PFSH PFS Medical History Abdominal pain Anxiety Anxiety with depression Asthma Depression Diarrhea Fatigue Gastric reflux Gastritis History of echocardiogram History of irregular heartbeat Nausea and vomiting Smoker Weight loss Home Medications hydroxyzine pamoate 25 mg capsule 25 mg PO DAILY 07/06/21 [History Last Taken Unknown] omeprazole 40 mg capsule,delayed release 40 mg PO QDAY #30 cap 07/06/21 [Rx Last Taken Unknown] Allergy/AdvReac Type Severity Reaction Status Date / Time sulfamethoxazole Allergy Hives Verified 12/13/21 16:39 [From Bactrim] trimethoprim [From Bactrim] Allergy Hives Verified 12/13/21 16:39 Family History Father Heart disease Thyroid disorder Surgical History No history of previous surgery Social History Smoking Status: Current every day smoker tobacco type: e-cigarettes alcohol intake: never substance use type: does not use ROS ROS ED ROS Narrative Lightheadedness Constitutional Constitutional ED: Denies chills, fever(s) or weight loss Eyes Eyes: Denies change in vision or diplopia ENT ENT ED: Denies ear pain, rhinorrhea or sore throat Cardiovascular Cardiovascular: Denies chest pain, orthopnea, palpitations or racing heartbeat Respiratory/Chest Respiratory/Chest: Denies cough, dyspnea or orthopnea Gastrointestinal Gastrointestinal: Reports abdominal pain, nausea and vomiting; Denies diarrhea Genitourinary Genitourinary ED: Denies dysuria, hematuria or urinary frequency Musculoskeletal Musculoskeletal: Denies arthralgias or myalgias Integumentary Denies abscess or rash Neurologic Neurologic: Denies headache(s) or weakness Psychiatric Psychiatric: Denies anxiety, depression, suicidal ideation or suicidal thoughts Endocrine Endocrinology: Denies polydipsia, polyphagia or polyuria Allergic/Immunologic Allergic/Immunologic ED: Denies mouth swelling, tongue swelling or urticaria EXAM Physical Exam Const Vital Signs: 12/13/21 16:37 Temperature 98.7 F Temperature Source Temporal Pulse Rate 83 Respiratory Rate 18 Blood Pressure 144/92 H Blood Pressure Mean 109 Pulse Ox 99 Oxygen Delivery Method Room Air Positive well nourished and well developed General Appearance ED: well developed HEENT Reports normocephalic, head/scalp atraumatic, TM's clear and moist mucous membranes Negative for trauma Tympanic Membrane ED: Yes TM's clear Eyes PERRL and EOMs intact bilaterally Neck no lymphadenopathy, supple and no JVD Resp normal respiratory effort and clear to auscultation bilaterally Cardio regular rate, regular rhythm and no murmurs GI normal to inspection, nondistended, normoactive bowel sounds and non-tender Palpation: soft Back/Spine normal ROM General Back: CVA tenderness right Extremity normal to inspection General Extremety ED: Negative for edema General Extremity: Negative for edema Neuro oriented x3 and CN's II-XII intact bilaterally Sensorium / Orientation: alert Motor Exam: strength 5/5 throughout Psych mental status grossly normal Mood & Affect: Negative for depressed or tearful Skin no rashes or lesions noted and no wounds MDM MDM MDM Narrative Medical decision making narrative: White count 8.1 with a hemoglobin of 13.4. CMP and lipase normal. BUN of 12 with a creatinine of 0.82. Serum test is negative. Urinalysis is negative. CT abdomen pelvis without contrast does not demonstrate any kidney stone or findings that would explain her pain. She received Toradol and Zofran. At this point I do not have a clear etiology for the patient's pain. I do not see anything obviously emergent. Would recommend anti-inflammatories or Tylenol return if worsening or concerns Lab Data Attestation: I reviewed the patient's lab results. Labs: Laboratory Results - last 24 hr 12/13/21 12/13/21 12/13/21 17:05 17:05 17:05 WBC 8.1 RBC 4.15 L Hgb 13.4 Hct 36.6 L MCV 88.2 MCH 32.3 H MCHC 36.6 H RDW Std Deviation 39.3 RDW Coeff of Sophie 12.2 Plt Count 329 MPV 9.3 Immature Gran % (Auto) 0.400 Neut % (Auto) 68.3 Lymph % (Auto) 24.9 [place] % (Auto) 5.8 Eos % (Auto) 0.1 Baso % (Auto) 0.5 Absolute Neuts (auto) 5.5 Absolute Lymphs (auto) 2.01 Nucleated RBC % 0 Sodium 139 Potassium 3.5 Chloride 107 Carbon Dioxide 25.0 Anion Gap 7 BUN 12 Creatinine 0.82 Estim Creat Clear Calc 78.61 Est GFR (MDRD) Af Amer 114 Est GFR (MDRD) Non-Af 94 BUN/Creatinine Ratio 14.7 Glucose 95 Calcium 9.2 Total Bilirubin 0.40 AST 14 L ALT 19 Alkaline Phosphatase 59 Total Protein 7.6 Albumin 4.0 Globulin 3.6 Albumin/Globulin Ratio 1.1 Lipase 59 L Serum , Qual NEGATIVE Radiography Diagnostic Testing: Clinical Impression(s) from Imaging Studies Abdomen/Pelvis CT 12/13/21 16:45 IMPRESSION: 1. No hydronephrosis or urinary tract calcifications. Electronically Signed: Conrad Burrows MD (Brooks) at 18:16 EDT Reading Location ID and State: [facility] / [place] , Service support , Discharge Plan Triage Chief Complaint: Abd Pain ED Provider: Mack Rousseau Dx/Rx/DC Orders Clinical Impression: Acute abdominal pain in right flank Instructions: ED Flank Pain, Uncertain Cause Prescriptions: No Action hydroxyzine pamoate [Vistaril] 25 mg capsule 25 mg PO DAILY RF: 0 omeprazole 40 mg capsule,delayed release(DR/EC) 40 mg PO QDAY Qty: 30 RF: 2 [facility] - As Needed Disposition Disposition: Home, Self Care
--- NOTE | 2021-12-13 16:45 | CT_ITS ---
STUDY: CT ABDOMEN AND PELVIS WITHOUT CONTRAST REASON FOR EXAM: Female, 21 years old. right flank pain,nausea RADIATION DOSAGE (If Supplied By Facility): CTDIvol = ( 7.07 ) mGy, DLP = ( 318.00 ) mGycm TECHNIQUE: Transaxial images were obtained from the dome of the diaphragm to the symphysis pubis without oral contrast, and without intravenous contrast. Sagittal and coronal images were reconstructed. Individualized dose optimization techniques were used for this CT. COMPARISON: None. FINDINGS: The visualized lung bases are unremarkable. The visualized portions of the heart are within normal limits. Normal liver. Normal gallbladder and extrahepatic biliary system. Normal spleen. Normal pancreas. Normal bilateral adrenal glands. Normal right kidney. Normal left kidney. Normal visualized stomach. Normal small intestine. Normal colon. The appendix is visualized and appears normal. Normal abdominal aorta. Normal inferior vena cava. Normal retroperitoneum. Normal urinary bladder. Physiologic quantity of free fluid in the dependent pelvis. Normal abdominal wall. Normal osseous structures. CT/Abdomen/Pelvis without Cont IMPRESSION: 1. No hydronephrosis or urinary tract calcifications. Electronically Signed: Conrad Burrows MD ([place]) at 18:16 EDT ,
[2021-12-13] MEDS: Ondansetron 4 MG/2 ML Vial IV (17:17)
[2021-12-13] MEDS: Ketorolac 30 MG/ML Syringe IV (17:17)
[2021-12-13 17:21] LABS: Absolute Lymphocyte Count 2.01 X10^3/uL (0.83-4.51); Absolute Neutrophil Count 5.5 X10^3/uL (2.0-7.7); Basophil# 0.04 X10^3/uL; Basophil% 0.5 % (0-1); Eosinophil# 0.01 X10^3/uL; Eosinophils% 0.1 % (0-5); Hematocrit 36.6 % (37-47); Hemoglobin 13.4 g/dL (12.0-15.0); Lymphocyte # 2.01 X10^3/ul (0.83-4.51); Lymphocyte % 24.9 % (19-41); Mean Corp Hgb Conc 36.6 g/dL (32-36); Mean Corpuscular Hgb 32.3 pg (27.0-32.0); Mean Corpuscular Volume 88.2 fL (81-99); Mean Platelet Vol. 9.3 fl (6.2-12.0); Monocyte# 0.47 X10^3/uL; Monocyte% 5.8 % (0-10); NRBC Flagged by Analyzer 0 % (0-5); Neutrophil # 5.52 X10^3/uL (2.7-7.7); Neutrophil % 68.3 % (47-70); Platelet Count 329 K/mm3 (150-450); RBC Distribution Width CV 12.2 % (11.6-14.6); RBC Distribution Width SD 39.3 fl (35.1-43.9); Red Blood Count 4.15 M/mm3 (4.2-5.4); White Blood Count 8.1 K/mm3 (4.4-11.0)
[2021-12-13 17:31] LABS: ALB/GLOB Ratio 1.1 RATIO (0.9-2.4); AST(SGOT) 14 U/L (15-37); Alanine Aminotransfer ALT/SGPT 19 U/L (13-56); Alkaline Phosphatase 59 U/L (45-117); Anion Gap 7 (5-15); BUN 12 mg/dL (7-18); BUN/Creat Ratio 14.7 RATIO (10-20); Calcium,Total 9.2 mg/dL (8.5-10.1); Chloride 107 mmol/L (98-107); Creatinine, Serum 0.82 mg/dL (0.55-1.02); EST Glomerular Filtration Rate 94 mL/min (>60); Est Glom Filt Rate - Afr Amer 114 mL/min (>60); Estimated Creatinine Clearance 78.61 ml/min; Globulin 3.6 g/dL (2.2-4.2); Glucose 95 mg/dL (74-106); Lipase 59 U/L (73-393); Potassium 3.5 mmol/L (3.5-5.1); Protein, Total 7.6 g/dL (6.4-8.2); Sodium Level 139 mmol/L (136-145)
[2021-12-13 17:58] LABS: Internal QC Validated? YES +Cl - CLEAR BKGD; Pregnancy, Serum, hCG Quali. NEGATIVE Negative
[2021-12-13 18:35] LABS: Bacteria 0 SEEN /hpf (None Seen); Mucous, Urine 0 SEEN /hpf (<or=2+); Red Blood Cells-Urine 0 SEEN /hpf (0-5); White Blood Cells 0 SEEN /hpf (0-5)
[2021-12-13 18:43] LABS: Color, Urine Straw (Yellow); Glucose, Dipstick Normal (Normal); Ketone-Dipstick 50 mg/dl (Negative); Leukocyte Esterase-Dipstick Negative /ul (Negative); Nitrite-Dipstick Negative (Negative); Occult Blood-Urine Negative /ul (Negative); Protein-Dipstick Negative (Negative); Urine Bilirubin Dipstick Negative (Negative); Urine Clarity Clear (Clear); Urine Urobilinogen Normal (Normal)
[2021-12-13 18:48] LABS: Squamous Epithelial Cells - UA 0-5 SEEN /hpf (5-10)
[2021-12-13 19:08] VITALS: BP 125/67; PULSE 82; RESP 17; O2SAT 100
== END 2021-12-13 19:08 | disposition home or self-care (01) ==
PROVIDERS: Emergency Provider Emergency Medicine; Visit Provider Emergency Medicine
DX: R10.9 Unspecified abdominal pain (principal); F17.210 Nicotine dependence, cigarettes, uncomplicated; K21.9 Gastro-esophageal reflux disease without esophagitis
CPT/HCPCS: 74176; 80053; 81001; 83690; 84703; 85025; 99283; A4216; J2405

== ENCOUNTER 2022-05-05 11:07 | Emergency (ER) | payer MEDICAID, SELFPAY ==
[2022-05-05 11:09] VITALS: BP 132/92; PULSE 115; RESP 18; TEMP 36.7; O2SAT 97; BMI 20.2
--- NOTE | 2022-05-05 11:49 | ED.VIS.GI ---
HPI HPI - GI History of Present Illness Chief Complaint: Nausea/Vomiting/Diarrhea Informant: patient Nausea/Vomiting/Emesis GI Symptom: Positive for Nausea and Vomiting Onset: Weeks Quality: Positive for Nonbilious; Negative for Blood streaks, Coffee ground or Hematemesis Diarrhea/Melena/Hematochezia GI Symptom: Positive for Diarrhea; Negative for Melena or Hematochezia Associated Symptoms Associated Symptoms: Positive for Frequency; Negative for Dysuria or Hematuria Narrative Narrative: Patient presents with nausea and vomiting that has been getting progressively worse over the past few weeks. Patient states it has been constant. Patient states it is worse with eating anything. Patient states she only eats approximately 500 valentina/day. Patient states she thinks she is developing anorexia. Patient also admits to some diarrhea. Patient denies any melena or hematochezia. Patient states her appetite is diminished. Patient admits to some urinary frequency but denies any dysuria or hematuria. Patient states her last menstrual period was 04/23/2022. PFSH [facility] Medical History Abdominal pain Anxiety Anxiety with depression Asthma Depression Diarrhea Fatigue Gastric reflux Gastritis History of echocardiogram History of irregular heartbeat Nausea and vomiting Smoker Weight loss Home Medications hydroxyzine pamoate 25 mg capsule (Vistaril) 25 mg PO DAILY 07/06/21 [History Last Taken Unknown] omeprazole 40 mg capsule,delayed release 40 mg PO QDAY #30 caps 07/06/21 [Rx Last Taken Unknown] Allergy/AdvReac Type Severity Reaction Status Date / Time sulfamethoxazole Allergy Hives Verified 05/05/22 11:09 [From Bactrim] trimethoprim [From Bactrim] Allergy Hives Verified 05/05/22 11:09 Family History Father Heart disease Thyroid disorder Surgical History No history of previous surgery Social History Smoking Status: Current every day smoker tobacco type: e-cigarettes alcohol intake: never substance use type: does not use ROS ROS ED Constitutional Constitutional ED: Reports sweats; Denies chills or fever(s) Eyes Eyes: Denies blurry vision or change in vision ENT ENT ED: Denies rhinorrhea or sore throat Cardiovascular Cardiovascular: Denies chest pain or palpitations Respiratory/Chest Respiratory/Chest: Denies cough or dyspnea Gastrointestinal Gastrointestinal: Reports diarrhea, nausea and vomiting; Denies abdominal pain Genitourinary Genitourinary ED: Denies dysuria or hematuria Musculoskeletal Musculoskeletal: Denies back pain or neck pain Integumentary Denies abscess or rash Neurologic Neurologic: Reports headache(s); Denies weakness Allergic/Immunologic Allergic/Immunologic ED: Denies mouth swelling or urticaria EXAM Physical Exam Const Vital Signs: 05/05/22 11:09 Temperature 98.1 F Temperature Source Temporal Pulse Rate 115 H Respiratory Rate 18 Blood Pressure 132/92 H Blood Pressure Mean 105 Pulse Ox 97 Oxygen Delivery Method Room Air Positive well nourished and well developed General Appearance ED: well developed HEENT Reports moist mucous membranes Neck supple and no JVD Resp normal respiratory effort and clear to auscultation bilaterally Cardio regular rate, regular rhythm and no murmurs GI normal to inspection, nondistended, normoactive bowel sounds and non-tender Palpation: soft Extremity normal to inspection General Extremety ED: Negative for edema or tenderness General Extremity: Negative for edema Neuro oriented x3, CN's II-XII intact bilaterally and no sensory deficits noted Sensorium / Orientation: alert Motor Exam: strength 5/5 throughout Psych mental status grossly normal Skin no rashes or lesions noted MDM MDM MDM Narrative Medical decision making narrative: Patient was given IV fluids and Zofran here. CBC was within normal limits. Comprehensive metabolic profile was within normal limits. Serum hCG was negative. Urinalysis shows ketones of 150. There is no evidence of urinary tract infection or hematuria. Patient is feeling better on reevaluation. Patient was instructed to drink plenty of fluids. Patient was instructed to follow-up with her primary care physician in 5 to 7 days for further evaluation. Patient understood and was agreeable with the plan. All questions were answered. Lab Data Attestation: I reviewed the patient's lab results. Labs: Laboratory Results - last 24 hr 05/05/22 05/05/22 05/05/22 12:15 12:15 12:15 WBC 10.8 RBC 4.61 Hgb 14.3 Hct 41.0 MCV 88.9 MCH 31.0 MCHC 34.9 RDW Std Deviation 41.5 RDW Coeff of Sophie 12.7 Plt Count 367 MPV 9.2 Immature Gran % (Auto) 0.300 Neut % (Auto) 80.6 H Lymph % (Auto) 13.9 L [place] % (Auto) 4.7 Eos % (Auto) 0.0 Baso % (Auto) 0.5 Absolute Neuts (auto) 8.7 H Absolute Lymphs (auto) 1.51 Nucleated RBC % 0 Sodium 137 Potassium 3.8 Chloride 102 Carbon Dioxide 26.0 Anion Gap 9 BUN 9 Creatinine 0.86 Estim Creat Clear Calc 74.95 Est GFR (MDRD) Af Amer 107 Est GFR (MDRD) Non-Af 89 BUN/Creatinine Ratio 10.5 Glucose 101 Calcium 9.6 Total Bilirubin 0.50 AST 18 ALT 25 Alkaline Phosphatase 72 Total Protein 8.7 H Albumin 4.3 Globulin 4.4 H Albumin/Globulin Ratio 1.0 Serum , Qual NEGATIVE Urine Color Urine Clarity Urine pH Ur Specific [place] Urine Protein Urine Glucose (UA) Urine Ketones Urine Occult Blood Urine Nitrite Urine Bilirubin Urine Urobilinogen Ur Leukocyte Esterase Urine RBC Urine WBC Ur Squamous Epith Cells Urine Bacteria Urine Mucus 05/05/22 12:15 WBC RBC Hgb Hct MCV MCH MCHC RDW Std Deviation RDW Coeff of Sophie Plt Count MPV Immature Gran % (Auto) Neut % (Auto) Lymph % (Auto) [place] % (Auto) Eos % (Auto) Baso % (Auto) Absolute Neuts (auto) Absolute Lymphs (auto) Nucleated RBC % Sodium Potassium Chloride Carbon Dioxide Anion Gap BUN Creatinine Estim Creat Clear Calc Est GFR (MDRD) Af Amer Est GFR (MDRD) Non-Af BUN/Creatinine Ratio Glucose Calcium Total Bilirubin AST ALT Alkaline Phosphatase Total Protein Albumin Globulin Albumin/Globulin Ratio Serum , Qual Urine Color Yellow Urine Clarity Clear Urine pH 6.5 Ur Specific [place] 1.015 Urine Protein Negative Urine Glucose (UA) Normal Urine Ketones 150 A* Urine Occult Blood Negative Urine Nitrite Negative Urine Bilirubin Negative Urine Urobilinogen Normal Ur Leukocyte Esterase Negative Urine RBC 0 SEEN Urine WBC 0 SEEN Ur Squamous Epith Cells 0 SEEN Urine Bacteria 0 SEEN Urine Mucus 0 SEEN Discharge Plan Triage Chief Complaint: Nausea/Vomiting/Diarrhea Other Complaint: Abd Pain ED Provider: Rai Cai Dx/Rx/DC Orders Clinical Impression: Nausea and vomiting Instructions: ED Vomiting (Adult) Prescriptions: No Action hydroxyzine pamoate [Vistaril] 25 mg capsule 25 mg PO DAILY omeprazole 40 mg capsule,delayed release(DR/EC) 40 mg PO QDAY Qty: 30 2RF Rx Instructions: swallow whole; do not crush, chew, dissolve, cut, break Primary Care Provider: [facility] - [facility]-5 Days Disposition Disposition: Home, Self Care
[2022-05-05] MEDS: Ondansetron 4 MG/2 ML Vial IV (12:17)
[2022-05-05] MEDS: 0.9% Normal Saline 1,000 ML 1000 ML IV (12:17)
[2022-05-05 12:26] LABS: Bacteria 0 SEEN /hpf (None Seen); Mucous, Urine 0 SEEN /hpf (<or=2+); Red Blood Cells-Urine 0 SEEN /hpf (0-5); Squamous Epithelial Cells - UA 0 SEEN /hpf (5-10); White Blood Cells 0 SEEN /hpf (0-5)
[2022-05-05 12:28] LABS: Absolute Lymphocyte Count 1.51 X10^3/uL (0.83-4.51); Absolute Neutrophil Count 8.7 X10^3/uL (2.0-7.7); Basophil# 0.05 X10^3/uL; Basophil% 0.5 % (0-1); Color, Urine Yellow (Yellow); Glucose, Dipstick Normal (Normal); Hemoglobin 14.3 g/dL (12.0-15.0); Leukocyte Esterase-Dipstick Negative /ul (Negative); Lymphocyte # 1.51 X10^3/ul (0.83-4.51); Lymphocyte % 13.9 % (19-41); Mean Corp Hgb Conc 34.9 g/dL (32-36); Mean Corpuscular Volume 88.9 fL (81-99); Mean Platelet Vol. 9.2 fl (6.2-12.0); Monocyte# 0.51 X10^3/uL; Monocyte% 4.7 % (0-10); NRBC Flagged by Analyzer 0 % (0-5); Neutrophil # 8.73 X10^3/uL (2.7-7.7); Neutrophil % 80.6 % (47-70); Nitrite-Dipstick Negative (Negative); Occult Blood-Urine Negative /ul (Negative); Platelet Count 367 K/mm3 (150-450); Protein-Dipstick Negative (Negative); RBC Distribution Width CV 12.7 % (11.6-14.6); RBC Distribution Width SD 41.5 fl (35.1-43.9); Red Blood Count 4.61 M/mm3 (4.2-5.4); Specific Gravity, Urine 1.015 (1.002-1.030); Urine Bilirubin Dipstick Negative (Negative); Urine Clarity Clear (Clear); Urine Urobilinogen Normal (Normal); Urine pH 6.5 (5.0 - 8.0); White Blood Count 10.8 K/mm3 (4.4-11.0)
[2022-05-05 12:30] LABS: Ketone-Dipstick 150 mg/dl (Negative)
[2022-05-05 12:39] LABS: Internal QC Validated? YES +Cl - CLEAR BKGD; Pregnancy, Serum, hCG Quali. NEGATIVE Negative
[2022-05-05 12:48] LABS: AST(SGOT) 18 U/L (15-37); Alanine Aminotransfer ALT/SGPT 25 U/L (13-56); Albumin, Serum 4.3 g/dL (3.2-5.0); Alkaline Phosphatase 72 U/L (45-117); Anion Gap 9 (5-15); BUN 9 mg/dL (7-18); BUN/Creat Ratio 10.5 RATIO (10-20); Calcium,Total 9.6 mg/dL (8.5-10.1); Chloride 102 mmol/L (98-107); Creatinine, Serum 0.86 mg/dL (0.55-1.02); EST Glomerular Filtration Rate 89 mL/min (>60); Est Glom Filt Rate - Afr Amer 107 mL/min (>60); Estimated Creatinine Clearance 74.95 ml/min; Globulin 4.4 g/dL (2.2-4.2); Glucose 101 mg/dL (74-106); Potassium 3.8 mmol/L (3.5-5.1); Protein, Total 8.7 g/dL (6.4-8.2); Sodium Level 137 mmol/L (136-145)
[2022-05-05 13:15] VITALS: PULSE 69; RESP 16; O2SAT 99
== END 2022-05-05 13:22 | disposition home or self-care (01) ==
PROVIDERS: Emergency Provider Emergency Medicine; Visit Provider Emergency Medicine
DX: R11.2 Nausea with vomiting, unspecified (principal); R19.7 Diarrhea, unspecified; R35.0 Frequency of micturition; R10.9 Unspecified abdominal pain; F17.210 Nicotine dependence, cigarettes, uncomplicated
CPT/HCPCS: 80053; 81001; 84703; 85025; 96361; 96374; 99284; J7030; A4216; J2405

== ENCOUNTER 2022-05-06 09:25 | Emergency (ER) | payer MEDICAID, SELFPAY ==
[2022-05-06 09:27] VITALS: BP 113/72; PULSE 78; RESP 16; TEMP 37; O2SAT 97; BMI 22.4
--- NOTE | 2022-05-06 09:52 | EDS_ITS ---
HPI History of Present Illness Chief Complaint: General Illness Informant: patient Narrative Narrative: Patient states for the past 2 to 3 days she has been having epigastric pain, more vomiting than usual, and diarrhea less than 5 times per day. Diarrhea is watery nonbloody nonmelanotic. Emesis is nonbloody no coffee-ground's. Has history of a stomach ulcer that was seen on EGD by Dr. Vásquez according to patient. States she was seen here yesterday for the same symptoms but the pain has been unrelenting and worse but similar overnight, she presents here 9:30 AM states she has been up since 4 with severe symptoms. She also states that every morning, she vomits and this is been going on for months or couple years. She also gets the same epigastric discomfort but this is worse. She has been vomiting more than usual in the last couple days but not a lot more. She states she does get some temporary improvement/relief when she vomits but the pain is not going away. She has no history of any abdominal surgeries or other chronic GI diagnoses. She does have anxiety she takes Vistaril for that, she tried that last night but it just made her more sleepy and it did not help the pain at all. She was prescribed a new anxiety medicine escitalopram 3 days ago that she just started as well. She denies any fevers or chills. No recent travel out of the area or suspicious food intake that could be responsible for food poisoning, no sick contacts with similar symptoms. She denies any new symptoms right now compared with what she had yesterday. Yesterday, she was given IV fluids and nausea medication and no prescriptions. [facility] Medical History Abdominal pain Anxiety Anxiety with depression Asthma Depression Diarrhea Fatigue Gastric reflux Gastritis History of echocardiogram History of irregular heartbeat Nausea and vomiting Smoker Weight loss Home Medications hydroxyzine pamoate 25 mg capsule (Vistaril) 25 mg PO DAILY 07/06/21 [History Last Taken Unknown] omeprazole 40 mg capsule,delayed release 40 mg PO QDAY #30 caps 07/06/21 [Rx Last Taken Unknown] dicyclomine 10 mg capsule 20 mg PO Q6H PRN PRN abdominal discomfort #20 CAPSULES 05/06/22 [Rx Last Taken Unknown] metoclopramide HCl 10 mg tablet 10 mg PO Q6H PRN nausea and vomiting #20 tabs 1 [Rx Last Taken Unknown] Allergy/AdvReac Type Severity Reaction Status Date / Time sulfamethoxazole Allergy Hives Verified 05/06/22 09:26 [From Bactrim] trimethoprim [From Bactrim] Allergy Hives Verified 05/06/22 09:26 Family History Father Heart disease Thyroid disorder Surgical History No history of previous surgery Social History Smoking Status: Current every day smoker tobacco type: e-cigarettes alcohol intake: never substance use type: does not use ROS ROS ED Constitutional Constitutional ED: Reports malaise; Denies chills or fever(s) Eyes Eyes: Denies change in vision or diplopia ENT ENT ED: Denies rhinorrhea or sore throat Cardiovascular Cardiovascular: Denies chest pain or palpitations Respiratory/Chest Respiratory/Chest: Denies cough or dyspnea Gastrointestinal Gastrointestinal: Reports as per HPI, abdominal pain, diarrhea, nausea and vomiting; Denies hematemesis, hematochezia, melena or rectal bleeding Genitourinary Genitourinary ED: Denies dysuria or hematuria Musculoskeletal Musculoskeletal: Denies back pain or neck pain Integumentary Denies abscess or rash Neurologic Neurologic: Denies headache(s), paresthesias or weakness Psychiatric Psychiatric: Reports anxiety; Denies suicidal thoughts EXAM Physical Exam Const Vital Signs: 05/06/22 09:27 Temperature 98.6 F Temperature Source Temporal Pulse Rate 78 Respiratory Rate 16 Blood Pressure 113/72 Blood Pressure Mean 85 Pulse Ox 97 Oxygen Delivery Method Room Air Positive well nourished and well developed General Appearance ED: well developed and NAD HEENT Reports moist mucous membranes normocephalic and atraumatic Eyes PERRL and EOMs intact bilaterally Neck full ROM and supple Resp normal respiratory effort and clear to auscultation bilaterally Cardio regular rate, regular rhythm and no murmurs GI non-distended GI Narrative: Tender with some voluntary guarding epigastrium no other areas of tenderness. Negative Helm. No rebound tenderness. Auscultation: normoactive bowel sounds Palpation: soft Back/Spine no CVA tenderness General Back: other FROM Extremity normal to inspection General Extremety ED: Negative for edema, pulses abnormal or tenderness General Extremity: Negative for edema or pulses abnormal Neuro oriented x3, CN's II-XII intact bilaterally and no sensory deficits noted Sensorium / Orientation: awake and alert Motor Exam: strength 5/5 throughout Psych Mood & Affect: anxious Skin no rashes or lesions noted and no wounds MDM MDM MDM Narrative Medical decision making narrative: I repeated the patient's labs, she feels worse today and her white blood count is better/lower. The rest of her labs are unremarkable. This is reassuring that indeed, similar to my initial impression of upper GI/intestinal discomfort etiology, this is consistent with that. I do not think she needs a CT scan. She was treated with a liter of IV fluids, IV Reglan, IM Bentyl, and an oral GI cocktail. All of this really helped. She still has some mild abdominal discomfort but much improved. I think less likely to be foodborne illness and bacterial etiologies since she is not having a lot of diarrhea. It is possible she has viral gastritis. Is possible she has a functional GI disorder such as irritable bowel syndrome as well. She should continue taking her PPI, I'll prescribe her Reglan and dicyclomine to use as needed, and I advised close outpa tient follow-up with her PCP if symptoms persist longer than 3 more days or so she is comfortable with that plan. Lab Data Attestation: I reviewed the patient's lab results. Labs: Laboratory Results - last 24 hr 05/06/22 05/06/22 10:00 10:00 WBC 8.0 RBC 4.36 Hgb 13.6 Hct 37.8 MCV 86.7 MCH 31.2 MCHC 36.0 RDW Std Deviation 39.8 RDW Coeff of Sophie 12.5 Plt Count 344 MPV 9.3 Immature Gran % (Auto) 0.200 Neut % (Auto) 80.8 H Lymph % (Auto) 13.5 L [place] % (Auto) 4.9 Eos % (Auto) 0.0 Baso % (Auto) 0.6 Absolute Neuts (auto) 6.5 Absolute Lymphs (auto) 1.08 Nucleated RBC % 0 Sodium 140 Potassium 3.7 Chloride 104 Carbon Dioxide 24.0 Anion Gap 12 BUN 8 Creatinine 0.82 Estim Creat Clear Calc 78.61 Est GFR (MDRD) Af Amer 113 Est GFR (MDRD) Non-Af 94 BUN/Creatinine Ratio 9.8 L Glucose 111 H Calcium 9.6 Lipase 82 Discharge Plan Triage Chief Complaint: General Illness ED Provider: Frederick Sandhu Dx/Rx/DC Orders Clinical Impression: Acute epigastric pain, Nausea vomiting and diarrhea Instructions: ED Epigastric Pain Uncertain Cause Prescriptions: New metoclopramide HCl [metoclopramide HCl] 10 mg tablet 10 mg PO Q6H PRN (Reason: nausea and vomiting) Qty: 20 0RF dicyclomine 10 mg capsule 20 mg PO Q6H PRN PRN (Reason: abdominal discomfort) Qty: 20 0RF No Action hydroxyzine pamoate [Vistaril] 25 mg capsule 25 mg PO DAILY omeprazole 40 mg capsule,delayed release(DR/EC) 40 mg PO QDAY Qty: 30 2RF Rx Instructions: swallow whole; do not crush, chew, dissolve, cut, break Primary Care [facility] - 3-5 Days if not improving Disposition Disposition: Home, Self Care
[2022-05-06] MEDS: 0.9% Normal Saline 1,000 ML 999 ML IV (10:02)
[2022-05-06 10:11] LABS: Absolute Lymphocyte Count 1.08 X10^3/uL (0.83-4.51); Absolute Neutrophil Count 6.5 X10^3/uL (2.0-7.7); Basophil# 0.05 X10^3/uL; Basophil% 0.6 % (0-1); Hematocrit 37.8 % (37-47); Hemoglobin 13.6 g/dL (12.0-15.0); Lymphocyte # 1.08 X10^3/ul (0.83-4.51); Lymphocyte % 13.5 % (19-41); Mean Corpuscular Hgb 31.2 pg (27.0-32.0); Mean Corpuscular Volume 86.7 fL (81-99); Mean Platelet Vol. 9.3 fl (6.2-12.0); Monocyte# 0.39 X10^3/uL; Monocyte% 4.9 % (0-10); NRBC Flagged by Analyzer 0 % (0-5); Neutrophil # 6.47 X10^3/uL (2.7-7.7); Neutrophil % 80.8 % (47-70); Platelet Count 344 K/mm3 (150-450); RBC Distribution Width CV 12.5 % (11.6-14.6); RBC Distribution Width SD 39.8 fl (35.1-43.9); Red Blood Count 4.36 M/mm3 (4.2-5.4)
[2022-05-06] MEDS: Metoclopramide 10 MG/2 ML Vial 5 MG IV (10:16)
[2022-05-06] MEDS: Mag Hydrox/Al Hydrox/Simeth 30 ML UDC PO (10:16)
[2022-05-06] MEDS: Sucralfate 1 GM Tablet PO (10:17)
[2022-05-06] MEDS: Dicyclomine 20 MG/2 ML Vial IM (10:18)
[2022-05-06 10:28] LABS: Anion Gap 12 (5-15); BUN 8 mg/dL (7-18); BUN/Creat Ratio 9.8 RATIO (10-20); Calcium,Total 9.6 mg/dL (8.5-10.1); Chloride 104 mmol/L (98-107); Creatinine, Serum 0.82 mg/dL (0.55-1.02); EST Glomerular Filtration Rate 94 mL/min (>60); Est Glom Filt Rate - Afr Amer 113 mL/min (>60); Estimated Creatinine Clearance 78.61 ml/min; Glucose 111 mg/dL (74-106); Lipase 82 U/L (73-393); Potassium 3.7 mmol/L (3.5-5.1); Sodium Level 140 mmol/L (136-145)
== END 2022-05-06 12:10 | disposition home or self-care (01) ==
PROVIDERS: Emergency Provider Emergency Medicine; Visit Provider Emergency Medicine
DX: R10.13 Epigastric pain (principal); R11.2 Nausea with vomiting, unspecified; R19.7 Diarrhea, unspecified; F17.210 Nicotine dependence, cigarettes, uncomplicated
CPT/HCPCS: 80048; 85025; 83690; J7030; A4216

== ENCOUNTER 2022-05-06 23:02 | Emergency (ER) | payer MEDICAID, SELFPAY ==
[2022-05-06 23:03] VITALS: BP 139/105; PULSE 127; RESP 18; TEMP 36.6; O2SAT 100; BMI 22.2
--- NOTE | 2022-05-06 23:13 | EX.ED.DYSGE1 ---
HPI History of Present Illness Chief Complaint: Nausea/Vomiting/Diarrhea Informant: patient Onset/Context/Timing Onset: Days Context: Gradual Onset Current Severity: Moderate Maximum Severity: Severe Narrative Narrative: Patient presents secondary to continued abdominal pain with nausea, vomiting, and diarrhea. Patient has been seen here twice in the last 2 days. Lab work is been unremarkable. Patient states that she was unable to keep her oral medicine down at home to help her symptoms. She continues to have vomiting and noted a slight pink color to her vomitus tonight. She does reportedly have a history of an ulcer seen on EGD performed Dr. Vásquez in the past. She has not been able to keep her antacids down. No fever or chills. [facility] Medical History Abdominal pain Anxiety Anxiety with depression Asthma Depression Diarrhea Fatigue Gastric reflux Gastritis History of echocardiogram History of irregular heartbeat Nausea and vomiting Smoker Weight loss Home Medications hydroxyzine pamoate 25 mg capsule (Vistaril) 25 mg PO DAILY 07/06/21 [History Last Taken Unknown] omeprazole 40 mg capsule,delayed release 40 mg PO QDAY #30 caps 07/06/21 [Rx Last Taken Unknown] dicyclomine 10 mg capsule 20 mg PO Q6H PRN PRN abdominal discomfort #20 CAPSULES 05/06/22 [Rx Last Taken Unknown] metoclopramide HCl 10 mg tablet 10 mg PO Q6H PRN nausea and vomiting #20 tabs 05/06/22 [Rx Last Taken Unknown] escitalopram oxalate 10 mg tablet 10 mg PO DAILY 05/07/22 [History Last Taken Unknown] Allergy/AdvReac Type Severity Reaction Status Date / Time sulfamethoxazole Allergy Hives Verified 05/06/22 23:03 [From Bactrim] trimethoprim [From Bactrim] Allergy Hives Verified 05/06/22 23:03 Family History Father Heart disease Thyroid disorder Surgical History No history of previous surgery Social History Smoking Status: Current every day smoker tobacco type: e-cigarettes alcohol intake: never substance use type: does not use ROS ROS ED Constitutional Constitutional ED: Denies chills or fever(s) Eyes Eyes: Denies change in vision or discharge from eye(s) ENT ENT ED: Denies discharge from eye(s), rhinorrhea or sore throat Cardiovascular Cardiovascular: Denies chest pain or palpitations Respiratory/Chest Respiratory/Chest: Denies cough or dyspnea Gastrointestinal Gastrointestinal: Reports abdominal pain, diarrhea, nausea and vomiting Genitourinary Genitourinary ED: Denies dysuria Musculoskeletal Musculoskeletal: Denies back pain or extremity pain Integumentary Denies Abrasions or rash Neurologic Neurologic: Denies headache(s) or weakness Psychiatric Psychiatric: Denies anxiety or depression Allergic/Immunologic Allergic/Immunologic ED: Denies lip swelling or urticaria EXAM Physical Exam Const Vital Signs: 05/06/22 23:03 05/07/22 01:02 05/07/22 02:10 Temperature 97.9 F Temperature Source Temporal Pulse Rate 127 H 79 Respiratory Rate 18 15 Blood Pressure 139/105 H 140/82 H 126/76 H Blood Pressure Mean 116 101 92 Pulse Ox 100 99 Oxygen Delivery Method Room Air Room Air Positive well nourished and well developed General Appearance ED: well developed HEENT Reports normocephalic and head/scalp atraumatic Eyes PERRL and EOMs intact bilaterally Neck supple Chest Wall inspection of chest normal and palpation of chest normal Resp normal respiratory effort and clear to auscultation bilaterally Cardio regular rhythm Rate: tachycardic GI GI Narrative: Epigastric tenderness palpation. No guarding or rebound. Auscultation: hypoactive bowel sounds Palpation: soft Back/Spine no CVA tenderness Extremity normal to inspection Neuro oriented x3 and no sensory deficits noted Sensorium / Orientation: alert Motor Exam: strength 5/5 throughout Psych mental status grossly normal Skin no rashes or lesions noted MDM MDM MDM Narrative Medical decision making narrative: Patient's 2 prior visits were reviewed. Patient given a small dose of morphine along with Zofran and IV Protonix. Lab work obtained. Lab Data Attestation: I reviewed the patient's lab results. Labs: Laboratory Results - last 24 hr 05/06/22 05/06/22 23:36 23:36 WBC 15.0 H RBC 4.39 Hgb 13.2 Hct 38.7 MCV 88.2 MCH 30.1 MCHC 34.1 D RDW Std Deviation 40.9 RDW Coeff of Sophie 12.8 Plt Count 390 MPV 9.8 Immature Gran % (Auto) 0.400 Neut % (Auto) 88.0 H Lymph % (Auto) 7.0 L [place] % (Auto) 4.3 Eos % (Auto) 0.0 Baso % (Auto) 0.3 Absolute Neuts (auto) 13.2 H Absolute Lymphs (auto) 1.05 Nucleated RBC % 0 Sodium 137 Potassium 4.4 Chloride 103 Carbon Dioxide 19.0 L Anion Gap 15 BUN 7 Creatinine 0.78 Estim Creat Clear Calc 82.64 Est GFR (MDRD) Af Amer 119 Est GFR (MDRD) Non-Af 99 BUN/Creatinine Ratio 8.9 L Glucose 138 H Calcium 9.5 Total Bilirubin 0.80 Direct Bilirubin 0.18 AST 33 ALT 26 Alkaline Phosphatase 62 Total Protein 8.3 H Albumin 4.1 Globulin 4.2 Lipase 60 L Radiography Chest X-Ray - ED: 2 View, Read by ED Physician and - (Concern for pneumomediastinum.) Diagnostic Testing: Clinical Impression(s) from Imaging Studies Chest X-Ray 05/07/22 00:29 IMPRESSION: Findings are highly suspicious for pneumomediastinum, and a trace right apical pneumothorax. Electronically Signed: Katelyn Lowery MD at 0:46 EDT , ADDENDUM: 05/07/22 0104 IMPRESSION: Findings are highly suspicious for pneumomediastinum, and a trace right apical pneumothorax. N.B. : The above Results were Read Back by Katelyn Lowery MD to Sunitha Basurto MD, and understanding confirmed on 05/07/2022 00:57:43 (ET). Electronically Signed: Katelyn Lowery MD at 0:46 EDT , Chest CT 05/07/22 00:50 IMPRESSION: Extensive pneumomediastinum and gas extending through the bilateral bronchovascular structures, differential includes barotrauma, trauma and pulmonary lacerations. Electronically Signed: Travis Murphy MD at 1:22 EDT , Treatment and Re-Evaluation Narrative: Prior lab work is reviewed. test was negative on May 05. Lab work tonight reveals an elevated white count of 15.0 with 88% neutrophils. Chemistry studies unremarkable. LFTs and lipase unremarkable. Chest x-ray per my interpretation revealed possible pneumomediastinum. Radiology did call me and advised that the findings were highly suspicious for pneumomediastinum and a possible right apical pneumothorax. CT scan of the chest is then obtained. There is extensive pneumomediastinum. Test results are discussed with the patient. She does report still having some mild nausea and will be given another dose of Zofran. I will give her a dose of Zosyn. Patient will need transfer to a facility where CT surgery is available for consult. Patient is being discussed with [facility] for transfer. Discharge Plan Triage Chief Complaint: Nausea/Vomiting/Diarrhea ED Provider: Sunitha Basurto Dx/Rx/DC Orders Clinical Impression: Vomiting, Pneumomediastinum Prescriptions: No Action hydroxyzine pamoate [Vistaril] 25 mg capsule 25 mg PO DAILY omeprazole 40 mg capsule,delayed release(DR/EC) 40 mg PO QDAY Qty: 30 2RF Rx Instructions: swallow whole; do not crush, chew, dissolve, cut, break metoclopramide HCl [metoclopramide HCl] 10 mg tablet 10 mg PO Q6H PRN (Reason: nausea and vomiting) Qty: 20 0RF dicyclomine 10 mg capsule 20 mg PO Q6H PRN PRN (Reason: abdominal discomfort) Qty: 20 0RF escitalopram oxalate 10 mg tablet 10 mg PO DAILY Label Comments: TAKE 1 TABLET BY MOUTH ONCE DAILY Primary Care Provider: Alexandra Dacosta [facility] - Disposition Disposition: Acute Care Hospital Discharge Location: [facility]
[2022-05-06] MEDS: Ondansetron 4 MG/2 ML Vial IV (23:32)
[2022-05-06] MEDS: Morphine 2 MG/ML Syringe IV (23:33)
[2022-05-07 00:03] LABS: Absolute Lymphocyte Count 1.05 X10^3/uL (0.83-4.51); Absolute Neutrophil Count 13.2 X10^3/uL (2.0-7.7); Basophil# 0.04 X10^3/uL; Basophil% 0.3 % (0-1); Hematocrit 38.7 % (37-47); Hemoglobin 13.2 g/dL (12.0-15.0); Lymphocyte # 1.05 X10^3/ul (0.83-4.51); Mean Corp Hgb Conc 34.1 g/dL (32-36); Mean Corpuscular Hgb 30.1 pg (27.0-32.0); Mean Corpuscular Volume 88.2 fL (81-99); Mean Platelet Vol. 9.8 fl (6.2-12.0); Monocyte# 0.64 X10^3/uL; Monocyte% 4.3 % (0-10); NRBC Flagged by Analyzer 0 % (0-5); Neutrophil # 13.24 X10^3/uL (2.7-7.7); Platelet Count 390 K/mm3 (150-450); RBC Distribution Width CV 12.8 % (11.6-14.6); RBC Distribution Width SD 40.9 fl (35.1-43.9); Red Blood Count 4.39 M/mm3 (4.2-5.4)
[2022-05-07 00:13] LABS: AST(SGOT) 33 U/L (15-37); Alanine Aminotransfer ALT/SGPT 26 U/L (13-56); Albumin, Serum 4.1 g/dL (3.2-5.0); Alkaline Phosphatase 62 U/L (45-117); Anion Gap 15 (5-15); BUN 7 mg/dL (7-18); BUN/Creat Ratio 8.9 RATIO (10-20); Bilirubin, Direct 0.18 mg/dL (0.00-0.30); Calcium,Total 9.5 mg/dL (8.5-10.1); Chloride 103 mmol/L (98-107); Creatinine, Serum 0.78 mg/dL (0.55-1.02); EST Glomerular Filtration Rate 99 mL/min (>60); Est Glom Filt Rate - Afr Amer 119 mL/min (>60); Estimated Creatinine Clearance 82.64 ml/min; Globulin 4.2 g/dL (2.2-4.2); Glucose 138 mg/dL (74-106); Lipase 60 U/L (73-393); Potassium 4.4 mmol/L (3.5-5.1); Protein, Total 8.3 g/dL (6.4-8.2); Sodium Level 137 mmol/L (136-145)
--- NOTE | 2022-05-07 00:29 | RAD_ITS ---
We are attempting to reach an attending provider to discuss findings. An addendum with communication details will be sent when the communication is complete. STUDY: X-RAY CHEST REASON FOR EXAM: Female, 21 years old. Pain, vomiting TECHNIQUE: PA and lateral views of the chest. COMPARISON: April 19, 2021 chest x-ray FINDINGS: There is a trace right apical pneumothorax. Normal size heart. There is visualized gas within the mediastinum and a trace right apical pneumothorax. Normal visualized pulmonary arteries. Normal visualized aortic arch and descending thoracic aorta. Normal visualized thoracic spine. Normal visualized ribs, clavicles, and shoulders. There is no demonstrated abnormality of the visualized soft tissue structures of the upper abdomen. RAD/Chest PA and Lateral IMPRESSION: Findings are highly suspicious for pneumomediastinum, and a trace right apical pneumothorax. Electronically Signed: Katelyn Lowery MD at 0:46 EDT ,
[2022-05-07] MEDS: Morphine 2 MG/ML Syringe IV (00:43)
[2022-05-07] MEDS: 0.9% Normal Saline 1,000 ML 150 ML IV (00:43)
--- NOTE | 2022-05-07 00:50 | CT_ITS ---
EXAM: CT Chest W/O Contrast Injection HISTORY: pneumomediastinum TECHNIQUE: CT Chest W/O Contrast Injection A radiation dose optimization technique was used for this scan. COMPARISON: X-ray chest 05/07/2022. LIMITATIONS: None. LUNGS: Scattered gas throughout the bilateral bronchovascular structures extending from the hilum predominantly into the right lower lobe and lingula. AORTA/GREAT VESSELS: No aneurysm.. PULMONARY VESSELS: Normal. PLEURA: Normal. MEDIASTINUM: Extensive pneumomediastinum extending into the neck. UPPER ABDOMEN: Normal. BONES/SOFT TISSUES: Normal. OTHER: None. CT/Chest without Contrast IMPRESSION: Extensive pneumomediastinum and gas extending through the bilateral bronchovascular structures, differential includes barotrauma, trauma and pulmonary lacerations. Electronically Signed: Travis Murphy MD at 1:22 EDT ,
[2022-05-07 01:02] VITALS: BP 140/82; PULSE 79; RESP 15; O2SAT 99
[2022-05-07] MEDS: Ondansetron 4 MG/2 ML Vial IV (01:40)
--- NOTE | 2022-05-07 01:43 | ED.RN ---
[facility][1] called no beds at this time
--- NOTE | 2022-05-07 01:44 | ED.RN ---
nini neff called and spoke to transfer center they will page out at this time
[2022-05-07 02:10] VITALS: BP 126/76
[2022-05-07] MEDS: fentaNYL 100 MCG/2 ML Ampul 25 MCG IV (03:06)
[2022-05-07] MEDS: Metoclopramide 10 MG/2 ML Vial 5 MG IV (03:32)
[2022-05-07] MEDS: DiphenhydrAMINE 50 MG/ML Syringe 12.5 MG IV (03:32)
[2022-05-07 03:42] VITALS: BP 126/76; PULSE 79; RESP 14; TEMP 36.6; O2SAT 99
== END 2022-05-07 03:45 | disposition short-term general hospital (02) ==
PROVIDERS: Emergency Provider Emergency Medicine; PCP Nurse Practitioner Adult Health; Visit Provider Emergency Medicine
DX: J98.2 Interstitial emphysema (principal); R11.2 Nausea with vomiting, unspecified; R10.9 Unspecified abdominal pain; R19.7 Diarrhea, unspecified; F17.210 Nicotine dependence, cigarettes, uncomplicated
CPT/HCPCS: 71046; 71250; 80048; 80076; 83690; 85025; 96361; 96372; 96374; 99283; 99284; J7030; J7050; A4216; J2405

== ENCOUNTER → 2023-01-10 | Outpatient (CLI) | payer MEDICAID, SELFPAY ==
--- NOTE | 2023-01-10 14:20 | US_ITS ---
STUDY: FIRST TRIMESTER OBSTETRICAL ULTRASOUND REASON FOR EXAM: Female, 22 years old ENCOUNTER FOR TEST, RESULT + LMP: November 20, 2022. TECHNIQUE: Transvaginal TECHNICAL QUALITY: Adequate. PRIOR ULTRASOUND: None. FINDINGS: There is visualization of a single gestational sac in a normal intrauterine position. The mean sac diameter (MSD) measures 8.2 mm, indicating an estimated gestational age (EGA) of 5 weeks, 4 days. The gestational sac shape is within normal limits. There is a visualized yolk sac. The yolk sac measures 3.2 mm. The placenta is non-visualized. There is no demonstrated embryo ( pole). The estimated gestation age (EGA) by LMP is 7 weeks, 2 days. The estimated date of delivery (ROSALINDA) by LMP is August 27, 2023. The estimated gestation age (EGA) by US is 5 weeks, 4 days. The estimated date of delivery (ROSALINDA) by US is September 08, 2023. The uterus measures 8.5 cm x 6.2 cm x 4.7 cm. There is evidence of a bicornuate uterus. Small subchorionic bleed to the right of the gestational sac. There is no demonstrated uterine fibroid. The cervix is closed. The right ovary measures 3.1 cm x 1.9 cm x 1.3 cm. There is no right ovarian cyst. There is no visualized right adnexal mass or complex lesion. The left ovary measures 3.3 cm x 2.2 cm x 1.8 cm. There is no left ovarian cyst. There is no visualized left adnexal mass or complex lesion. There is no fluid in the cul de sac. US/Transvaginal w/Preg US IMPRESSION: Interim gestation with a mean gestational age of 5 4 days. Bicornuate uterus. Small subchorionic bleed to the right of the gestational sac. Electronically Signed: Alex Najera MD at 15:28 EDT ,
== END | disposition home or self-care (01) ==
LOC: US 14:18
PROVIDERS: Referring Provider Nurse Practitioner Women's Health; Visit Provider Nurse Practitioner Women's Health
DX: Z32.01 Encounter for pregnancy test, result positive (principal)
CPT/HCPCS: 76817